=== PATIENT | male | born 1940 | race Caucasian/White ===

== ENCOUNTER 2016-04-08 19:03 | Inpatient (IN) | payer MEDICARE ==
[~2016-04-08] VITALS: Ht 182.9 cm; Wt 80.0 kg
[~2016-04-08 19:03] MED LIST: ALOG12.52 PO; CEFU1TAB42 PO; GLIP5 PO; ZANT300T PO
[2016-04-08 19:20] VITALS: BP 130/60; PULSE 98; RESP 16; TEMP 98.2; O2SAT 96
--- NOTE | 2016-04-08 19:58 | PD ---
HPI Chief Complaint: Medical Clearance Time Seen by Provider: 19:30 Travel History International Travel<30 days: No Contact w/Intl Traveler<30days: No Traveled to known affect area: No History of Present Illness HPI 75yo M DM was sent here from [facility] for admission to hospitalist for IV antibiotics s/p scrotal abscess drainage, suprapubic tube placement and scrotal packing by Dr. Davey Staples today. Pt denies any pain currently. Denies any chest pain, sob, n/v, abdominal pain, weakness or numbness. PFSH Past Medical History Hx Anticoagulant Therapy: No Arthritis: Yes Autoimmune Disease: No Cancer: No Cardiovascular Problems: Yes High Cholesterol: Yes Chemotherapy: No Cerebrovascular Accident: No Diabetes: Yes Patient Takes Glucophage: No Diminished Hearing: No Endocrine: Yes Gastrointestinal Disorders: Yes GERD: Yes Genitourinary: No Immune Disorder: No Musculoskeletal: Yes Neurologic: No Psychiatric: No Reproductive: No Respiratory: No Radiation Therapy: No Tetanus Vaccination: < 5 Years Influenza Vaccination: No Past Surgical History Cholecystectomy: Yes Other Surgery: Yes (veins in legs) Social History Alcohol Use: No Tobacco Use: No Substance Use: No Allergies-Medications (Allergen,Severity, Reaction): Coded Allergies: No Known Allergies (Unverified , 11/13/14) Reported Meds & Prescriptions Reported Meds & Active Scripts Active Reported Flomax (Tamsulosin HCl) 0.4 Mg Cap 0.4 Mg PO HS Zantac (Ranitidine HCl) 300 Mg Tab 300 Mg PO DAILY Protonix (Pantoprazole Sodium) 40 Mg Tab 40 Mg PO DAILY Lasix (Furosemide) 40 Mg Tab 40 Mg PO DAILY Glipizide 5 Mg Tab 5 Mg PO DAILY Take 30 minutes before a meal Review of Systems Except as stated in HPI: all other systems reviewed are Neg Physical Exam Narrative GENERAL: 75yo M not in distress. SKIN: Warm and dry. HEAD: Atraumatic. Normocephalic. EYES: Pupils equal and round. No scleral icterus. No injection or drainage. ENT: No nasal bleeding or discharge. Mucous membranes pink and moist. NECK: Trachea midline. No JVD. CARDIOVASCULAR: Regular rate and rhythm. No murmur appreciated. RESPIRATORY: No accessory muscle use. Clear to auscultation. Breath sounds equal bilaterally. GASTROINTESTINAL: Abdomen soft, non-tender, nondistended. No rebound tenderness or guarding. Suprapubic cath in place. : Aponte catheter in place. Scrotal dressing/support in place. MUSCULOSKELETAL: No obvious deformities. No clubbing. No cyanosis. No edema. NEUROLOGICAL: Awake and alert. No obvious cranial nerve deficits. Motor grossly within normal limits. Normal speech. PSYCHIATRIC: Appropriate mood and affect; insight and judgment normal. Data Data Last Documented VS Vital Signs Date Time Temp Pulse Resp B/P Pulse Ox O2 Delivery O2 Flow Rate FiO2 04/08/16 19:20 98.2 98 16 130/60 96 Room Air Orders Complete Blood Count With Diff (04/08/16 19:55) Basic Metabolic Panel (Bmp) (04/08/16 19:55) Sodium Chlor 0.45% 1000 Ml Inj (1/2 Ns 1 (04/08/16 20:00) Cefazolin Inj (Ancef Inj) (04/08/16 22:00) Sodium Chlor 0.9% 1000 Ml Inj (Ns 1000 M (04/08/16 22:00) Gentamicin 80 Mg Premix (Gentamicin 80 M (04/08/16 22:16) Admit Order (Ed Use Only) (04/08/16 22:27) Labs Laboratory Tests Test 04/08/16 20:05 White Blood Count 13.0 TH/MM3 Red Blood Count 4.08 MIL/MM3 Hemoglobin 12.8 GM/DL Hematocrit 38.6 % Mean Corpuscular Volume 94.6 FL Mean Corpuscular Hemoglobin 31.4 PG Mean Corpuscular Hemoglobin 33.2 % Concent Red Cell Distribution Width 14.7 % Platelet Count 211 TH/MM3 Mean Platelet Volume 7.8 FL Neutrophils (%) (Auto) 83.3 % Lymphocytes (%) (Auto) 9.1 % Monocytes (%) (Auto) 6.5 % Eosinophils (%) (Auto) 0.8 % Basophils (%) (Auto) 0.3 % Neutrophils # (Auto) 10.8 TH/MM3 Lymphocytes # (Auto) 1.2 TH/MM3 Monocytes # (Auto) 0.8 TH/MM3 Eosinophils # (Auto) 0.1 TH/MM3 Basophils # (Auto) 0.0 TH/MM3 CBC Comment AUTO DIFF Differential Total Cells 100 Counted Neutrophils % (Manual) 81 % Band Neutrophils % 2 % Lymphocytes % 5 % Monocytes % 10 % Eosinophils % 1 % Neutrophils # (Manual) 10.9 TH/MM3 Myelocytes 1 % Differential Comment FINAL DIFF MANUAL Platelet Estimate NORMAL Platelet Morphology Comment NORMAL Tear Drop Cells 1+ Ovalocytes 1+ Sodium Level 131 MEQ/L Potassium Level 5.2 MEQ/L Chloride Level 96 MEQ/L Carbon Dioxide Level 20.8 MEQ/L Anion Gap 14 MEQ/L Blood Urea Nitrogen 27 MG/DL Creatinine 1.53 MG/DL Estimat Glomerular Filtration 44 ML/MIN Rate Random Glucose 110 MG/DL Calcium Level 8.1 MG/DL MDM Medical Decision Making Medical Screen Exam Complete: Yes Emergency Medical Condition: Yes Interpretation(s) Laboratory Tests Test 04/08/16 20:05 White Blood Count 13.0 TH/MM3 (4.0-11.0) Red Blood Count 4.08 MIL/MM3 (4.50-5.90) Hemoglobin 12.8 GM/DL (13.0-17.0) Hematocrit 38.6 % (39.0-51.0) Mean Corpuscular Volume 94.6 FL (80.0-100.0) Mean Corpuscular Hemoglobin 31.4 PG (27.0-34.0) Mean Corpuscular Hemoglobin 33.2 % Concent (32.0-36.0) Red Cell Distribution Width 14.7 % (11.6-17.2) Platelet Count 211 TH/MM3 (150-450) Mean Platelet Volume 7.8 FL (7.0-11.0) Neutrophils (%) (Auto) 83.3 % (16.0-70.0) Lymphocytes (%) (Auto) 9.1 % (9.0-44.0) Monocytes (%) (Auto) 6.5 % (0.0-8.0) Eosinophils (%) (Auto) 0.8 % (0.0-4.0) Basophils (%) (Auto) 0.3 % (0.0-2.0) Neutrophils # (Auto) 10.8 TH/MM3 (1.8-7.7) Lymphocytes # (Auto) 1.2 TH/MM3 (1.0-4.8) Monocytes # (Auto) 0.8 TH/MM3 (0-0.9) Eosinophils # (Auto) 0.1 TH/MM3 (0-0.4) Basophils # (Auto) 0.0 TH/MM3 (0-0.2) CBC Comment AUTO DIFF Differential Total Cells 100 Counted Neutrophils % (Manual) 81 % (16-70) Band Neutrophils % 2 % (0-6) Lymphocytes % 5 % (9-44) Monocytes % 10 % (0-8) Eosinophils % 1 % (0-4) Neutrophils # (Manual) 10.9 TH/MM3 (1.8-7.7) Myelocytes 1 % (0-0) Differential Comment FINAL DIFF MANUAL Platelet Estimate NORMAL (NORMAL) Platelet Morphology Comment NORMAL (NORMAL) Tear Drop Cells 1+ (NORMAL) Ovalocytes 1+ (NORMAL) Sodium Level 131 MEQ/L (136-145) Potassium Level 5.2 MEQ/L (3.5-5.1) Chloride Level 96 MEQ/L (98-107) Carbon Dioxide Level 20.8 MEQ/L (21.0-32.0) Anion Gap 14 MEQ/L (5-15) Blood Urea Nitrogen 27 MG/DL (7-18) Creatinine 1.53 MG/DL (0.60-1.30) Estimat Glomerular Filtration 44 ML/MIN (>89) Rate Random Glucose 110 MG/DL (74-106) Calcium Level 8.1 MG/DL (8.5-10.1) Differential Diagnosis Admission for IV antibiotics for scrotal abscess Narrative Course 75yo M sent here from [facility] by Dr. Staples s/p drainage of scrotal abscess. I spoke with Dr. Baer who is covering and he states that pt was sent here for observation for IV antibiotics because he is a poorly controlled diabetic. Dr. Staples wrote an order for ancef 1m and gentamicin 80mg at 22:00. Labs reviewed, leukocytosis at 13.0. H/H low at 12.8/38.6 but better than baseline. Na low at 131, pt was initially placed on 1/[address] Staples's order, will give NS instead. K 5.2 but it is hemolyzed. BUN/ creatinine mildly elevated at 27/1.53. Previous creatinine was 1.32. Pt given ancef and gentamicin at 22:00. Discussed with Dr. Villatoro's PA and accepted to his service. Diagnosis Primary Impression: Scrotal abscess Admitting Information Admitting Physician Requests: Observation Mariah Morelos DO Apr 08, 2016 19:58
[2016-04-08] MEDS ORDERED: SODIUM CHLOR 0.45% 1000 ML INJ 1,000 ML IV SCH (20:00)
[2016-04-08] MEDS ORDERED: TAMS5CAP PO (21:01)
[2016-04-08] MEDS ORDERED: PROT40TA PO (21:01)
[2016-04-08] MEDS ORDERED: GLIP5TAB8 PO (21:01)
[2016-04-08] MEDS ORDERED: ZANT300T PO (21:01)
[2016-04-08] MEDS ORDERED: FURO1TAB60 PO (21:01)
[2016-04-08 21:12] LABS: AUTOMATED NEUTROPHIL # 10.8 TH/MM3 (1.8-7.7); BASOPHIL % 0.3 % (0.0-2.0); EOSINOPHIL # 0.1 TH/MM3 (0-0.4); EOSINOPHIL % 0.8 % (0.0-4.0); HEMATOCRIT 38.6 % (39.0-51.0); LYMPH % 9.1 % (9.0-44.0); LYMPHOCYTE # 1.2 TH/MM3 (1.0-4.8); MEAN CELL VOLUME 94.6 FL (80.0-100.0); MEAN CORPUSCULAR HEMOGLOBIN 31.4 PG (27.0-34.0); MEAN CORPUSCULAR HGB CONC 33.2 % (32.0-36.0); MONO % 6.5 % (0.0-8.0); NEUT % 83.3 % (16.0-70.0); PLATELET COUNT 211 TH/MM3 (150-450); RED BLOOD COUNT 4.08 MIL/MM3 (4.50-5.90); RED CELL DISTRIBUTION WIDTH 14.7 % (11.6-17.2)
[2016-04-08 21:14] LABS: HEMO FLAGS AUTO DIFF
[2016-04-08 21:37] LABS: BICARBONATE 20.8 MEQ/L (21.0-32.0)
[2016-04-08 21:39] LABS: POTASSIUM 5.2 MEQ/L (3.5-5.1)
[2016-04-08 21:48] LABS: BANDS 2 % (0-6); EOSINOPHILS 1 % (0-4); MYELOCYTES 1 % (0-0); NEUTROPHIL # MANUAL DIFF 10.9 TH/MM3 (1.8-7.7); POLYS (SEG NEUTROPHILS) 81 % (16-70); WBC DIFF SAMPLE 100
[2016-04-08 21:49] LABS: OVALOCYTES 1+ (NORMAL); PLATELET ESTIMATE SMEAR NORMAL (NORMAL); PLATELET MORPHOLOGY NORMAL (NORMAL); SCAN/DIFF FINAL DIFF MANUAL; TEARDROP RBCS 1+ (NORMAL)
[2016-04-08] MEDS ORDERED: GENTAMICIN INJ 80 MG in SODIUM CHLORIDE 0.9% INJ 100 ML IV ONE (22:00)
[2016-04-08] MEDS ORDERED: SODIUM CHLOR 0.9% 1000 ML INJ 1,000 ML IV SCH (22:00)
[2016-04-08] MEDS ORDERED: GENTAMICIN 80 MG PREMIX 100 ML IV ONE (22:16)
[2016-04-08] MEDS ORDERED: Gentamicin Consult Pharmacy 1 EA OTHER SCH (23:00)
[2016-04-08] MEDS ORDERED: NALOXONE HCL 0.4 MG/ML AMP IV PRN (23:00)
[2016-04-08] MEDS ORDERED: ACETAMINOPHEN 325 MG TAB PO PRN (23:00)
[2016-04-08] MEDS ORDERED: MAGNESIUM HYDROXIDE SUSP 30 ML CUP PO PRN (23:00)
[2016-04-08] MEDS ORDERED: SENNOSIDES 8.6 MG TAB PO PRN (23:00)
[2016-04-08] MEDS ORDERED: ONDANSETRON HCL 4 MG/2 ML VIAL IVP PRN (23:00)
[2016-04-08] MEDS ORDERED: ceFAZolin 2 GM PREMIX 50 ML IV SCH (23:00)
[2016-04-08] MEDS ORDERED: SODIUM CHLORIDE 0.9% FLUSH 5 ML FLUSH FLUSH PRN (23:00)
[2016-04-08] MEDS: SODIUM CHLOR 0.9% 1000 ML INJ 1,000 ML IV SCH (23:46)
[2016-04-09] VITALS (9 sets, daily range): BP systolic 113–143; BP diastolic 55–65; PULSE 87–96; RESP 16–24; TEMP 96.1–98.3; O2SAT 93–98
[2016-04-09] MEDS ORDERED: GENTAMICIN INJ 320 MG in SODIUM CHLORIDE 0.9% INJ 100 ML IV ONE (01:00)
[2016-04-09 05:55] LABS: AUTOMATED NEUTROPHIL # 6.7 TH/MM3 (1.8-7.7); BASOPHIL % 0.5 % (0.0-2.0); EOSINOPHIL # 0.1 TH/MM3 (0-0.4); EOSINOPHIL % 1.5 % (0.0-4.0); HEMATOCRIT 36.8 % (39.0-51.0); LYMPHOCYTE # 0.9 TH/MM3 (1.0-4.8); MEAN CORPUSCULAR HEMOGLOBIN 31.5 PG (27.0-34.0); MEAN CORPUSCULAR HGB CONC 33.9 % (32.0-36.0); MONO % 7.1 % (0.0-8.0); NEUT % 79.9 % (16.0-70.0); PLATELET COUNT 189 TH/MM3 (150-450); RED BLOOD COUNT 3.96 MIL/MM3 (4.50-5.90); RED CELL DISTRIBUTION WIDTH 14.7 % (11.6-17.2); WHITE BLOOD COUNT 8.4 TH/MM3 (4.0-11.0)
[2016-04-09 06:05] LABS: HEMO FLAGS AUTO DIFF
[2016-04-09 06:32] LABS: BICARBONATE 22.6 MEQ/L (21.0-32.0); POTASSIUM 4.8 MEQ/L (3.5-5.1)
[2016-04-09 06:57] LABS: BANDS 6 % (0-6); EOSINOPHILS 1 % (0-4); MYELOCYTES 2 % (0-0); NEUTROPHIL # MANUAL DIFF 7.2 TH/MM3 (1.8-7.7); POLYS (SEG NEUTROPHILS) 78 % (16-70); WBC DIFF SAMPLE 100
[2016-04-09 06:58] LABS: PLATELET ESTIMATE SMEAR NORMAL (NORMAL); PLATELET MORPHOLOGY NORMAL (NORMAL); SCAN/DIFF FINAL DIFF MANUAL
[2016-04-09] MEDS: SODIUM CHLORIDE 0.9% FLUSH 5 ML FLUSH FLUSH SCH ×2 (09:00→21:00)
[2016-04-09] MEDS: SODIUM CHLOR 0.9% 1000 ML INJ 1,000 ML IV SCH (09:36)
[2016-04-09] MEDS: HEPARIN SODIUM - SQ 10,000 UNITS/ML VIAL SQ SCH ×2 (09:51→21:10)
[2016-04-09] MEDS: CLINDAMYCIN INJ 600 MG in SODIUM CHLORIDE 0.9% INJ 100 ML IV SCH ×3 (10:10→22:27)
--- NOTE | 2016-04-09 10:33 | MH ---
cc: ADOLFOANTOLIN DATE OF ADMISSION: 04/08/2016 DATE OF 1940 CHIEF COMPLAINT Increased pain with scrotal abscess. TRAVEL LESS THAN 30 DAYS None. HISTORY OF PRESENT ILLNESS This is a pleasant, 75-year-old white male who had a TURP one week ago Wednesday. This would be approximately 1-1/2 weeks ago and had no major issues at the time of surgery. The patient went home and had an acute onset of scrotal edema, excruciating pain that he rates a 10/10. The patient could not walk and started immediately trying to get in touch with his physician. He was seen at the [facility] for IV antibiotics, also saw Dr. Davey Staples who placed a suprapubic tube and some scrotal packing. The patient is noted to have a scrotal abscess and drainage. The pain has been relieved somewhat but he still has some edema with an increased amount of bloody drainage. He has a dressing on that is intact. Currently he is alert, oriented and a fairly good historian. He does complain of some decreased appetite with some nausea. He denies any fever, no chest pain, no headache, no recent weight gain or loss. No dizziness. PAST MEDICAL HISTORY 1. Diabetes type 2. 2. GERD. 3. Hyperlipidemia. 4. Arthritis. 5. Prostate problems. PAST SURGICAL HISTORY 1. Cholecystectomy. 2. Varicose veins. 3. Recent TURP. ALLERGIES None known. REPORTED MEDICATIONS 1. Flomax. 2. Zantac. 3. Protonix. 4. Lasix. 5. Glipizide. SOCIAL HISTORY The patient is and currently lives with his in his home. He has four children who are grown. Denies any alcohol, tobacco or illicit drug use. REVIEW OF SYMPTOMS A 12 point review was done. Positives mentioned were scrotal abscess with increased pain, non-ambulatory for several days secondary to the pain, TURP one week ago. Decreased appetite and some nausea. Other systems are negative or unremarkable. PHYSICAL EXAMINATION VITAL SIGNS: Temperature 98.2, pulse 98, respirations 16, blood pressure 130/60 and 123/62. O2 sat 98 on room air. GENERAL: A 75-year-old white male looks to be younger than his stated age, resting in the bed. Alert, oriented, good historian. SKIN: Warm and dry. He does have a scrotal abscess wound which has already been mentioned with some edema and bloody drainage. HEENT: Atraumatic, normocephalic. PERRLA at 2. No scleral icterus, no nasal drainage. Mucous membranes are pink and moist. NECK: Trachea is midline. Neck is supple. No JVD. CARDIOVASCULAR: Regular rate and rhythm. He does have a grade 4/6 holosystolic murmur noted at the second intercostal space left sternal border. RESPIRATORY: Bilateral equal breath sounds anteriorly and posteriorly. Clear to auscultation. GASTROINTESTINAL: Abdomen is soft, non-tender, non-distended. Active bowel sounds. Suprapubic catheter in place. MUSCULOSKELETAL: He moves his extremities with purpose. He does have a 1+ edema bilaterally in his left lower leg. On palpation he does have some pain in his right lower leg but denies any tenderness or guarding. NEUROLOGIC: He is awake and alert x 4. Good historian. Equal hand ingredient scaler. Speech is normal. PSYCHIATRIC: Appropriate mood and affect. Judgment is normal. Insight is normal. DIAGNOSTIC DATA Initially on admission WBC count was 13, now 8.4, RBC now 3.96, hemoglobin 12.5, hematocrit 36.8, platelet count 189, neutrophil percentage absolute 79.9. Chemistry: Sodium 132, potassium now 4.8, was 5.2 on admission, chloride 99, carbon dioxide 22.6, anion gap 10, BUN 34, creatinine 1.36, GFR 51, random glucose 135, calcium 7.9. IMAGING STUDIES None so far for this visit. ASSESSMENT AND PLAN 1. Scrotal abscess. 2. Acute kidney injury with probable dehydration. 3. Hyponatremia, mild. 4. Anemia, mild. 5. Leukocytosis with possible sepsis secondary to the scrotal abscess. 6. Hypertension. Our plan is to admit initially for observation. We will monitor vital signs q. 4. He is on ADA 1800 calorie diet. Gentle hydration with fluids. Consult Urology for his expert opinion. Consult Infectious Disease. Consult Wound care. Heparin subcu for DVT prophylaxis. The patient is on Ancef, received 1 dose of gentamicin in the ER and currently has just been started on clindamycin IV. We will monitor his labs. Appreciate the expert opinion of the consulting physicians. He will need extensive wound care with dressing changes. Currently the patient if full code, full aggressive care. Dictated by: NAN Mccarthy Antolin Villatoro MD JP/SSB /9:02 AM /10:27 AM Patient was seen and examined today in ER, as above [id number] time spent with the patient Chart reviewed Labs reviewed Medications reviewed Notes reviewed Plan of care discussed with [employer] TE[employer]ER Discussed with RN Discussed with patient and family at bedside Discussed with SADIA SWARTZ
[2016-04-09] MEDS ORDERED: MORPHINE SULFATE 4 MG/ML INJ IV PUSH PRN (11:00)
[2016-04-09] MEDS ORDERED: PANTOPRAZOLE SOD 40 MG DELAYED RELEASE TAB PO SCH (11:00)
[2016-04-09] MEDS ORDERED: RANITIDINE HCL 150 MG TAB PO SCH (11:00)
[2016-04-09] MEDS: FUROSEMIDE 40 MG TAB PO SCH (11:10)
[2016-04-09] MEDS ORDERED: Vancomycin Consult Pharmacy 1 EA IV SCH (11:15)
[2016-04-09] MEDS: PIPERACIL-TAZO 3.375 GM PREMIX 50 ML IV SCH ×2 (11:57→18:37)
[2016-04-09] MEDS: glipiZIDE 5 MG TAB PO SCH (11:57)
[2016-04-09] MEDS ORDERED: GLUCAGON 1 MG/ML VIAL OTHER PRN (12:00)
[2016-04-09] MEDS ORDERED: PHARMACY ORDERED LAB XX ONE (12:00)
[2016-04-09] MEDS ORDERED: DEXTROSE 50% IN WATER 50 ML VIAL(D50) IV PUSH PRN (12:00)
--- NOTE | 2016-04-09 12:30 | PD.ID.CON ---
History of Present Illness Service ID Consult Requested By Dr Baer Reason for Consult scrotal nec fasc Primary Care Physician Christopher Tesfaye MD Diagnoses: History of Present Illness 75 diabetic male sp TURP 11 days ago, noticed worsening pain after the surgery no fever, chills He was taking profilaxis abx prior and after the surgery had his buck removed 1 wk ago, after which he noticed progressive pain and swelling of the scrotum he has also noticed drainage from the scrotum He was seen by his urologist on wed and a new buck was inserted and his pain cont to worsen He has I+D in outpt urological center and suprapubic cath placed He has normal afebrile vital signs and leukocytosis of 13K Review of Systems Other as per history of present illness the rest of 12 point Past Family Social History Allergies: Coded Allergies: No Known Allergies (Unverified , 11/13/14) Past Medical History NIDDM, states he is not compliamt with BS chks BPH Past Surgical History R knee surgery Active Ordered Medications Medications where reviewed in EMR Antibiotics Include: clindamycin ancef Family History Non-Contributory. Social History No Tobacco. No ETOH. No Illicit Drugs. , lives with his Physical Exam Vital Signs Vital Signs Date Time Temp Pulse Resp B/P Pulse Ox O2 Delivery O2 Flow Rate FiO2 04/09/16 12:00 92 24 143/65 98 Room Air 04/09/16 10:00 92 16 140/65 97 Room Air 04/09/16 08:00 92 16 124/59 98 Room Air 04/09/16 07:00 95 16 123/62 98 Room Air 04/09/16 04:00 90 17 113/55 95 Room Air 04/09/16 00:00 96 22 121/58 95 Room Air 04/08/16 19:20 98.2 98 16 130/60 96 Room Air 04/08/16 19:14 16 Physical Exam CONSTITUTIONAL/GENERAL: This is an adequately nourished patient, in no apparent distress. TUBES/LINES/DRAINS: SKIN: No jaundice, rashes, or lesions. Skin temperature appropriate. Not diaphoretic. HEAD: Atraumatic. Normocephalic. EYES: Pupils equal and round and reactive. Extraocular motions intact. No scleral icterus. No injection or drainage. Fundi not examined. ENT: Hearing grossly normal. Nose without bleeding or purulent drainage. Throat without visible erythema, exudates, masses, or lesions. NECK: Trachea midline. Supple, nontender. No palpable thyroid enlargement or nodularity. CARDIOVASCULAR: Regular rate and rhythm without murmurs, gallops, or rubs. No JVD. Peripheral pulses symmetric. RESPIRATORY/CHEST: Symmetric, unlabored respirations. Clear to auscultation. Breath sounds equal bilaterally. No wheezes, rales, or rhonchi. GASTROINTESTINAL: Abdomen soft, non-tender, nondistended. No hepato-splenomegaly , or palpable masses. No guarding. Bowel sounds present. GENITOURINARY: Buck in place SP cath in place Scrotum is erythematous and extremely tender to palpation Wet gangrenous changes are obvious Purulent drainage present MUSCULOSKELETAL: Extremities without clubbing, cyanosis, or edema. No joint tenderness or effusion noted. No calf tenderness. No mottling or clubbing. LYMPHATICS: No palpable cervical or supraclavicular adenopathy. NEUROLOGICAL: Awake and alert. Motor and sensory grossly within normal limits. Follows commands. Speech normal. Moves all extremities. PSYCHIATRIC: No obvious anxiety/depression. no apparent hallucinations or other psychotic thought process. Laboratory Laboratory Tests Test 04/08/16 04/09/16 20:05 04:54 White Blood Count 13.0 8.4 Red Blood Count 4.08 3.96 Hemoglobin 12.8 12.5 Hematocrit 38.6 36.8 Mean Corpuscular Volume 94.6 93.0 Mean Corpuscular Hemoglobin 31.4 31.5 Mean Corpuscular Hemoglobin 33.2 33.9 Concent Red Cell Distribution Width 14.7 14.7 Platelet Count 211 189 Mean Platelet Volume 7.8 7.8 Neutrophils (%) (Auto) 83.3 79.9 Lymphocytes (%) (Auto) 9.1 11.0 Monocytes (%) (Auto) 6.5 7.1 Eosinophils (%) (Auto) 0.8 1.5 Basophils (%) (Auto) 0.3 0.5 Neutrophils # (Auto) 10.8 6.7 Lymphocytes # (Auto) 1.2 0.9 Monocytes # (Auto) 0.8 0.6 Eosinophils # (Auto) 0.1 0.1 Basophils # (Auto) 0.0 0.0 CBC Comment AUTO DIFF AUTO DIFF Differential Total Cells 100 100 Counted Neutrophils % (Manual) 81 78 Band Neutrophils % 2 6 Lymphocytes % 5 9 Monocytes % 10 4 Eosinophils % 1 1 Neutrophils # (Manual) 10.9 7.2 Myelocytes 1 2 Differential Comment FINAL DIFF FINAL DIFF MANUAL MANUAL Platelet Estimate NORMAL NORMAL Platelet Morphology Comment NORMAL NORMAL Tear Drop Cells 1+ Ovalocytes 1+ Sodium Level 131 132 Potassium Level 5.2 4.8 Chloride Level 96 99 Carbon Dioxide Level 20.8 22.6 Anion Gap 14 10 Blood Urea Nitrogen 27 34 Creatinine 1.53 1.36 Estimat Glomerular Filtration 44 51 Rate Random Glucose 110 135 Calcium Level 8.1 7.9 Red Cell Morphology Comment NORMAL Result Diagram: 04/09/16 0454 04/09/16 0454 Assessment and Plan Assessment and Plan Demond's gangrene sp TURP ARF start zosyn, vancomycin, clindamycin - dc ancef - dc gent - pt needs urgent debridement of necrotic tissue Discussed Condition With pt, at b/s Sulma Stearns MD Apr 09, 2016 12:30
[2016-04-09] MEDS: VANCOMYCIN INJ 1,750 MG in SODIUM CHLORID 0.9% 500 ML INJ 500 ML IV SCH (15:06)
[2016-04-09] MEDS: INSULIN NovoLIN REGULAR SUPPLEMENTAL SCALE SQ SCH ×2 (16:00→21:11)
--- NOTE | 2016-04-09 19:19 | HHI.PR ---
Subjective Remarks Patient seen and examined with my partner Dr Baer. Scrotal wound is beginning to demarcate nicely and will require further debridement but it is not urgent at this point. The scrotal tissue shows no evidence of progression of abscess formation, no progressive erythema and the scrotal cavity is well drained. It is to be noted that the ventral surface of his mid urethra has eroded and so the urethral catheter is visible within the scrotal cavity and should not be removed. Davey Staples Objective Vital Signs Vital Signs Date Time Temp Pulse Resp B/P Pulse Ox O2 Delivery O2 Flow Rate FiO2 04/09/16 16:00 96.1 88 20 129/58 96 04/09/16 12:00 92 24 143/65 98 Room Air 04/09/16 10:00 92 16 140/65 97 Room Air 04/09/16 08:00 92 16 124/59 98 Room Air 04/09/16 07:00 95 16 123/62 98 Room Air 04/09/16 04:00 90 17 113/55 95 Room Air 04/09/16 00:00 96 22 121/58 95 Room Air 04/08/16 19:20 98.2 98 16 130/60 96 Room Air 04/08/16 19:14 16 Result Diagram: 04/09/16 0454 04/09/16 0454 Dallin Baer MD Apr 09, 2016 19:19
[2016-04-09] MEDS: TAMSULOSIN HCL 0.4 MG CAP PO SCH (21:10)
[2016-04-10] MEDS: ZOLPIDEM TARTRATE 5 MG TAB PO PRN (00:01)
[2016-04-10 03:44] VITALS: BP 126/66; PULSE 86; RESP 20; TEMP 96.8; O2SAT 93
[2016-04-10] MEDS: SODIUM CHLOR 0.9% 1000 ML INJ 1,000 ML IV SCH ×3 (04:34→14:57)
[2016-04-10] MEDS: CLINDAMYCIN INJ 600 MG in SODIUM CHLORIDE 0.9% INJ 100 ML IV SCH ×4 (04:34→22:36)
[2016-04-10] MEDS: PIPERACIL-TAZO 3.375 GM PREMIX 50 ML IV SCH ×4 (06:20→18:14)
[2016-04-10] MEDS: INSULIN NovoLIN REGULAR SUPPLEMENTAL SCALE SQ SCH ×4 (06:24→22:38)
[2016-04-10 07:38] VITALS: BP 142/66; PULSE 87; RESP 17; TEMP 97.2; O2SAT 94
[2016-04-10 08:35] LABS: POTASSIUM 3.9 MEQ/L (3.5-5.1)
[2016-04-10] MEDS ORDERED: FAMOTIDINE 20 MG TAB PO SCH (09:07)
[2016-04-10] MEDS: glipiZIDE 5 MG TAB PO SCH (09:38)
[2016-04-10] MEDS: FUROSEMIDE 40 MG TAB PO SCH (09:38)
[2016-04-10] MEDS: FAMOTIDINE 20 MG TAB PO SCH ×2 (09:38→22:37)
[2016-04-10] MEDS: HEPARIN SODIUM - SQ 10,000 UNITS/ML VIAL SQ SCH ×2 (09:38→22:37)
[2016-04-10] MEDS: SODIUM CHLORIDE 0.9% FLUSH 5 ML FLUSH FLUSH SCH ×2 (09:40→22:36)
--- NOTE | 2016-04-10 10:10 | HHI.PR ---
Subjective Subjective Remarks No chest pain Pain easing and scrotal area No shortness of breath No headache Appetite good (Liudmila Mary) Review of Systems Constitutional Constitutional: Weakness (generalized) (Liudmila Mary) Genitourinary Remarks Aponte, to be left in place (Liudmila Mary) Integumentary Skin: Wounds Skin Remarks Scrotal wound and abscess, bloody serous discharge, moderate amount (Liudmila Mary) Psychiatric Psychiatric: Normal Mood, Anxiety (mild) (Liudmila Mary) Vitals/Results Intake & Output 04/09/16 04/09/16 04/10/16 15:00 23:00 07:00 Output Total 1050 ml Balance -1050 ml Output Urine Total 1050 ml Vital Signs Vital Signs Date Time Temp Pulse Resp B/P Pulse Ox O2 Delivery O2 Flow Rate FiO2 04/10/16 07:38 97.2 87 17 142/66 94 04/10/16 03:44 96.8 86 20 126/66 93 04/09/16 23:49 98.2 87 19 128/60 95 04/09/16 20:15 98.3 92 20 138/63 93 04/09/16 16:00 96.1 88 20 129/58 96 04/09/16 12:00 92 24 143/65 98 Room Air (Liudmila Mary) CBC/BMP: 04/09/16 0454 04/10/16 0652 Lab Results Laboratory Tests Test 04/09/16 04/10/16 13:35 06:52 Random Gentamicin Level 4.3 MCG/ML Sodium Level 135 MEQ/L Potassium Level 3.9 MEQ/L Chloride Level 101 MEQ/L Carbon Dioxide Level 25.0 MEQ/L Anion Gap 9 MEQ/L Blood Urea Nitrogen 38 MG/DL Creatinine 1.31 MG/DL Estimat Glomerular Filtration 53 ML/MIN Rate Random Glucose 119 MG/DL Calcium Level 7.7 MG/DL Microbiology Microbiology 04/09/16 Gram Stain - Final, Resulted 04/09/16 Wound Culture, Resulted Pending Current Medications Active Medications Dextrose (D50w (Vial) Inj) 25 ml UNSCH PRN IV PUSH; Start 04/09/16 at 12:00 Famotidine (Pepcid) 20 mg BID PO; Start 04/10/16 at 09:07; Stop 04/10/16 at 09: 10; Status DC Famotidine (Pepcid) 20 mg BID PO Last administered on 04/10/16 09:38; Admin Dose 20 MG; Start 04/10/16 at 09:09 Furosemide (Lasix) 40 mg DAILY PO Last administered on 04/10/16 09:38; Admin Dose 40 MG; Start 04/09/16 at 11:00 Glipizide (Glucotrol) 5 mg DAILYAC PO Last administered on 04/10/16 09:38; Admin Dose 5 MG; Start 04/09/16 at 11:00 Glucagon (Glucagon Inj) 1 mg UNSCH PRN OTHER; Start 04/09/16 at 12:00 Miscellaneous Information SPECIFIC LAB TO BE DRAWN:[facility] TROUGH DATE TO... ONCE ONCE XX; Start 04/12/16 at 21:45; Stop 04/12/16 at 21:46; Status Cancel Miscellaneous Information SPECIFIC LAB TO BE DRAWN:[facility] DATE... ONCE ONCE XX; Start 04/09/16 at 12:00; Stop 04/09/16 at 12:01; Status DC Miscellaneous Information SPECIFIC LAB TO BE DRAWN:VANCOMYCIN TROUGH DATE TO... ONCE ONCE XX; Start 04/12/16 at 13:45; Stop 04/12/16 at 13:46 Morphine Sulfate 4 mg 4 mg Q3H PRN IV PUSH Last administered on 04/09/16 11:11 ; Admin Dose 4 MG; Start 04/09/16 at 11:00 Pantoprazole Sodium (Protonix) 40 mg DAILY PO Last administered on 04/09/16 11: 20; Admin Dose 40 MG; Start 04/09/16 at 11:00; Stop 04/09/16 at 12:14; Status DC Pharmacy Profile Note 0 ml @ 0 mls/hr UNSCH IV; Start 04/09/16 at 11:15 Piperacillin Sod/ Tazobactam Sod 50 ml @ 100 mls/hr Q6H IV Last administered on 04/10/16 06:20; Admin Dose 100 MLS/HR; Start 04/09/16 at 12:00 Ranitidine HCl (Zantac) 300 mg DAILY PO; Start 04/09/16 at 11:00; Stop 04/10/16 at 09:07; Status DC Tamsulosin HCl (Flomax) 0.4 mg HS PO Last administered on 04/09/16 21:10; Admin Dose 0.4 MG; Start 04/09/16 at 21:00 Vancomycin HCl/ Sodium Chloride (Vancomycin Inj/ NS 500 ml Inj) 517.5 ml @ 250 mls/hr Q24H IV Last administered on 04/09/16 15:06; Admin Dose 250 MLS/HR; Start 04/09/16 at 14:00 Zolpidem Tartrate (Ambien) 5 mg HS PRN PO Last administered on 04/10/16 00:01 ; Admin Dose 5 MG; Start 04/09/16 at 23:45 (Lidumila Mary) Physical Exam General General Appearance: Well Developed, Well Nourished, No Acute Distress, Comfortable (at present) (Liudmila MaryP) Eyes Eye Exam: Pupils Equal, Pupils Reactive, Sclera White (Liudmila MaryP) Ears & Nose Ears & Nose Exam: Nasal Mucosa [place], Septum Midline (Liudmila MaryP) Throat Throat Exam: Oral Mucosa [place] & Moist (Liudmila Mayr) Neck Neck Exam: Neck Supple, Trachea Midline (Liudmila MrayP) Pulmonary Resp Exam: Clear Bilaterally, Breath Sounds Equal, No Distress (Liudmila MaryP) Cardiology CV Exam: Regular (Liudmila Mary) Gastrointestinal/Abdomen GI Exam: Soft, Non-Tender, Bowel Sounds Present (Liudmila MaryP) Genitourinary Remarks Aponte catheter, orange clear urine, catheter to be left in place per Dr. mar ( Liudmila Mary) Musculoskeletal MS Exam: Joints Intact, Normal Tone (Liudmila MaryP) Integumentary Skin Exam: Clear, Warm, Normal Turgor Skin Remarks Scrotal wound with dressing, moderate amount of dark bloody drainage, with serous drainage. (Liudmila Mary) Extremeties Extremities Exam: Moderate Edema (2+ bilateral lower leg edema), Pitting Edema (Liudmila Mary M. NET COORDINATOR) Neurologic Neuro Exam: Alert, Awake, Oriented, Speech Clear, Moving All Extremities ( Liudmila Mary) Psychiatric Psych Exam: Appropriate Responses (Liudmila MaryAdarsh [place]) Assessment/Plan Assessment/Plan ASSESSMENT AND PLAN 1. Scrotal abscess. 2. Acute kidney injury with probable dehydration. 3. Hyponatremia, mild. 4. Anemia, mild. 5. Leukocytosis with possible sepsis secondary to the scrotal abscess. 6. Hypertension. admit initially for observation. vital signs q.4. ADA 1800 calorie diet. Gentle hydration with fluids. Consult Urology for his expert opinion. [place] catheter is to stay intact. According to his note ,scrotal wound is beginning to demarcate nicely and will require further debridement but it is not urgent at this point. The scrotal tissue shows no evidence of progression of abscess formation. Scrotal cavity is well drained. It is to be noted that the ventral surface of his mid urethra has eroded and so the urethral catheter is visible within the scrotal cavity and should not be removed. Consult Infectious Disease. Antibiotics include Zosyn and vancomycin and clindamycin IV. Demond's gangrene Leukocytosis now resolved with normal white count at 8.4 continue to monitor Consult Wound care. Heparin subcu for DVT prophylaxis. We will monitor his labs, vital signs, pain management, nutrition Labs in the a.m. Appreciate the expert opinion of the consulting physicians. He will need extensive wound care with dressing changes. Currently the patient if full code, full aggressive care. Discussed Condition with: Patient (Liudmila MaryAdarsh [place]) Assessment/Plan Pt seen and examined as above face to face time spent with pt labs and meds reviewed notes reviwed plan of care dw assistant chief of police dw rn dw pt (Mauricio Villatoro MD) TyraLiudmila [place] Apr 10, 2016 10:10 Mauricio Villatoro MD Apr 10, 2016 18:38
[2016-04-10 11:52] VITALS: BP 137/63; PULSE 89; RESP 20; TEMP 96.4; O2SAT 97
[2016-04-10] MEDS: VANCOMYCIN INJ 1,750 MG in SODIUM CHLORID 0.9% 500 ML INJ 500 ML IV SCH (14:34)
[2016-04-10] MEDS: ACETAMINOPHEN/HYDROcodone 325 MG/5 MG TAB PO PRN (17:06)
[2016-04-10 19:35] VITALS: BP 135/60; PULSE 85; RESP 19; TEMP 98.1; O2SAT 95
[2016-04-10] MEDS: TAMSULOSIN HCL 0.4 MG CAP PO SCH (22:37)
[2016-04-11] MEDS: PIPERACIL-TAZO 3.375 GM PREMIX 50 ML IV SCH ×3 (00:37→12:18)
[2016-04-11 00:42] VITALS: BP 133/63; PULSE 87; RESP 19; TEMP 98.2; O2SAT 95
[2016-04-11] MEDS: CLINDAMYCIN INJ 600 MG in SODIUM CHLORIDE 0.9% INJ 100 ML IV SCH ×2 (03:24→10:10)
[2016-04-11 03:51] VITALS: BP 131/60; PULSE 87; RESP 19; TEMP 98.4; O2SAT 96
[2016-04-11] MEDS: INSULIN NovoLIN REGULAR SUPPLEMENTAL SCALE SQ SCH ×4 (05:31→21:00)
[2016-04-11] MEDS: LIDOCAINE HCL 1% 50 ML VIAL ONE ×2 (07:17→07:20)
--- NOTE | 2016-04-11 07:34 | HHI.PR ---
Subjective Subjective Remarks S/P debridement of scrotal skin 04/11 tolerated well pain well controlled no cp no sob ate okay, no n/v no fever Review of Systems Constitutional Constitutional: Weakness (generalized) Constitutional Remarks 12 point ROS completed, negative except as noted above Integumentary Skin: Wounds Psychiatric Psychiatric: Normal Mood, Anxiety (mild) Vitals/Results Intake & Output 04/10/16 04/10/16 04/11/16 15:00 23:00 07:00 Output Total 650 ml 1200 ml 900 ml Balance -650 ml -1200 ml -900 ml Output Urine Total 650 ml 1200 ml 900 ml Vital Signs Vital Signs Date Time Temp Pulse Resp B/P Pulse Ox O2 Delivery O2 Flow Rate FiO2 04/11/16 03:51 98.4 87 19 131/60 96 04/11/16 00:42 98.2 87 19 133/63 95 04/10/16 19:35 98.1 85 19 135/60 95 04/10/16 11:52 96.4 89 20 137/63 97 04/10/16 07:38 97.2 87 17 142/66 94 CBC/BMP: 04/09/16 0454 04/10/16 0652 Physical Exam General General Appearance: Well Developed, Well Nourished, No Acute Distress, Comfortable Eyes Eye Exam: Pupils Equal, Pupils Reactive, Extraocular Movement Intact Ears & Nose Ears & Nose Exam: Nasal Mucosa [place] Throat Throat Exam: Oral Mucosa [place] & Moist Neck Neck Exam: Neck Supple, Trachea Midline Pulmonary Resp Exam: Clear Bilaterally, Breath Sounds Equal, No Distress Cardiology CV Exam: Regular Gastrointestinal/Abdomen GI Exam: Soft, Bowel Sounds Present, Distended Genitourinary Exam: Clear Urine Remarks BUCK -suprapubic and urethral Musculoskeletal MS Exam: Joints Intact, Normal Tone Integumentary Skin Exam: Clear, Warm, Normal Turgor Extremeties Extremities Exam: Pedal Pulses Palpable, Moderate Edema (2+ bilateral lower leg edema), Pitting Edema Neurologic Neuro Exam: Alert, Awake, Oriented, Speech Clear, Moving All Extremities, No Focal Deficits Psychiatric Psych Exam: Appropriate Responses VTE Prophylaxis VTE Prophylaxis Device: TEDs VTE Prophylaxis Meds: Heparin PUD Prophylasis PUD Remarks PEPCID Assessment/Plan Problem List: (1) Scrotal abscess (2) Lactic acidemia (3) ARF (acute renal failure) (4) Hypertension (5) BPH (benign prostatic hyperplasia) (6) Status post recent transurethral resection of prostate (7) Diabetes 1.5, managed as type 2 Assessment/Plan Scrotal abscess S/P debridement of scrotal skin 04/11 continue with suprapubic and buck catheter continue abx, ESBL + Appreciate ID and urology input Continue with accuchecks AC/HS Diabetic pain Pain management PRN Renal function improving cautious hydration Pedal edema, chronic continue TEDS Lasix PO Heparin SQ for DVT prophylaxis. Pepcid for GI prophylaxis Replace K Will be going back to OR on Wednesday PT for eval and tx D/W RN D/W Dr. Villatoro D/W pt This patient was seen by myself and Dr. Villatoro, this note is written on his behalf. Problem Qualifiers (1) ARF (acute renal failure): Qualified Code: N17.9 - Acute renal failure, unspecified acute renal failure type (2) Hypertension: Qualified Code: I10 - Essential hypertension (3) BPH (benign prostatic hyperplasia): Qualified Code: N40.0 - Benign prostatic hyperplasia, presence of lower urinary tract symptoms unspecified, unspecified morphology Miya Grullon Apr 11, 2016 07:34
[2016-04-11 07:44] LABS: HEMATOCRIT 33.7 % (39.0-51.0); MEAN CORPUSCULAR HEMOGLOBIN 31.6 PG (27.0-34.0); PLATELET COUNT 164 TH/MM3 (150-450); RED BLOOD COUNT 3.63 MIL/MM3 (4.50-5.90); RED CELL DISTRIBUTION WIDTH 14.4 % (11.6-17.2); REVIEW FLAG FINAL; WHITE BLOOD COUNT 4.9 TH/MM3 (4.0-11.0)
[2016-04-11 07:56] LABS: BICARBONATE 26.8 MEQ/L (21.0-32.0); POTASSIUM 3.5 MEQ/L (3.5-5.1)
--- NOTE | 2016-04-11 08:46 | PD.OP ---
Operative Report Date of Surgery: Apr 11, 2016 Preoperative Diagnosis: (1) Scrotal abscess Postoperative Diagnosis: Procedure: Debridement of Scrotal Skin Surgeon: Dallin Baer [employer] Supervisor(s): N/A Operation and Findings: See dictated report. Will likely need another debridement on Thursday 04/13. Dallin Baer MD Apr 11, 2016 08:46
[2016-04-11] MEDS ORDERED: MIDAZOLAM HCL 2 MG/2 ML VIAL ONE (08:54)
[2016-04-11] MEDS ORDERED: fentaNYL CITRATE 250 MCG/5 ML AMP ONE (08:55)
[2016-04-11] MEDS ORDERED: ACETAMINOPHEN 1000 MG/100 ML VIAL IV ONE (08:55)
[2016-04-11] MEDS: SODIUM CHLORIDE 0.9% FLUSH 5 ML FLUSH FLUSH SCH ×2 (09:00→21:20)
[2016-04-11] MEDS ORDERED: *morphine SULFATE 8 MG/ML PERIprocedure ONLY ONE (09:06)
[2016-04-11] MEDS ORDERED: *diphenhydrAMINE HCL 50 MG/ML VIAL PERIprocedural Use ONLY ONE (09:15)
[2016-04-11] MEDS ORDERED: DO NOT ADM ANY ANTICOAGULANT DRUGS XX PRN (09:45)
[2016-04-11] MEDS: FAMOTIDINE 20 MG TAB PO SCH ×2 (09:52→21:20)
[2016-04-11] MEDS: FUROSEMIDE 40 MG TAB PO SCH (09:52)
[2016-04-11] MEDS: HEPARIN SODIUM - SQ 10,000 UNITS/ML VIAL SQ SCH ×2 (09:55→21:21)
[2016-04-11] MEDS: SODIUM CHLOR 0.9% 1000 ML INJ 1,000 ML IV SCH (10:21)
[2016-04-11] MEDS ORDERED: ONDANSETRON HCL 4 MG/2 ML VIAL IV PUSH ONE (12:00)
[2016-04-11] MEDS ORDERED: PROPOFOL 200 MG/20 ML AMP IV ONE (12:00)
[2016-04-11] MEDS ORDERED: PHENYLEPH/NS 1000 MCG/10 ML SYR IV ONE (12:00)
[2016-04-11] MEDS: glipiZIDE 5 MG TAB PO SCH (12:20)
[2016-04-11 13:00] VITALS: BP 145/66; PULSE 83; RESP 18; TEMP 98.1; O2SAT 99
[2016-04-11] MEDS: VANCOMYCIN INJ 1,750 MG in SODIUM CHLORID 0.9% 500 ML INJ 500 ML IV SCH (13:01)
--- NOTE | 2016-04-11 13:17 | EKG ---
Date Performed: 04/11/2016 Time Performed: 00:36:51 PTAGE: 75 years EKG: Sinus rhythm WITH OCCASIONAL SUPRAVENTRICULAR PREMATURE COMPLEXES LOW QRS VOLTAGE IN PRECORDIAL LEADS MINIMAL ST DEPRESSION BORDERLINE ECG PREVIOUS TRACING : 11/13/2014 14.02 Compared to previous tracing, PAC is seen. Nonspecific zuleta ges are slightly more prominent. DOCTOR: Hernesto Matta Interpretating Date/Time 04/11/2016 13:15:44
[2016-04-11] MEDS ORDERED: ASP: Documented ESBL, MDR A baumannii or P. aeruginosa XX PRN (15:00)
[2016-04-11] MEDS ORDERED: MISCELLANEOUS PHARMACY INFORMATION XX PRN (15:00)
[2016-04-11 16:00] VITALS: BP 121/60; PULSE 81; RESP 17; TEMP 96.9; O2SAT 99
[2016-04-11] MEDS: ERTAPENEM INJ 1,000 MG in SODIUM CHLORIDE 0.9% INJ 100 ML IV SCH (16:26)
[2016-04-11] MEDS ORDERED: POTASSIUM CL 40 MEQ/30 ML LIQ UDC PO ONE (17:00)
[2016-04-11 20:00] VITALS: BP 134/63; PULSE 89; RESP 20; TEMP 96.6; O2SAT 95
[2016-04-11] MEDS: TAMSULOSIN HCL 0.4 MG CAP PO SCH (21:20)
[2016-04-11] MEDS: ZOLPIDEM TARTRATE 5 MG TAB PO PRN (21:24)
[2016-04-12 00:07] VITALS: BP 122/60; PULSE 90; RESP 19; TEMP 96.3; O2SAT 94
[2016-04-12] MEDS: INSULIN NovoLIN REGULAR SUPPLEMENTAL SCALE SQ SCH ×4 (06:08→20:58)
[2016-04-12] MEDS: glipiZIDE 5 MG TAB PO SCH (07:49)
[2016-04-12] MEDS: HEPARIN SODIUM - SQ 10,000 UNITS/ML VIAL SQ SCH ×2 (07:49→20:52)
[2016-04-12] MEDS: FUROSEMIDE 40 MG TAB PO SCH (07:49)
[2016-04-12] MEDS: FAMOTIDINE 20 MG TAB PO SCH ×2 (07:49→20:56)
[2016-04-12] MEDS: SODIUM CHLORIDE 0.9% FLUSH 5 ML FLUSH FLUSH SCH ×2 (07:50→20:57)
[2016-04-12 08:00] VITALS: BP 130/66; PULSE 102; RESP 16; TEMP 95.8; O2SAT 96
[2016-04-12] MEDS: ACETAMINOPHEN/HYDROcodone 325 MG/5 MG TAB PO PRN ×2 (09:04→17:01)
[2016-04-12] MEDS: SODIUM CHLOR 0.9% 1000 ML INJ 1,000 ML IV SCH (10:21)
--- NOTE | 2016-04-12 11:27 | HHI.PR ---
Subjective Interval History S/P debridement of scrotal skin 04/11 tolerated well pain well controlled no cp no sob ate okay, no n/v no fever Had debridement done yesterday Review of Systems 12 point ROS completed, negative except as noted above Review of Systems Constitutional Constitutional: Weakness (generalized) Integumentary Skin: Wounds Psychiatric Psychiatric: Normal Mood, Anxiety (mild) Vitals/Results Intake & Output 04/11/16 04/11/16 04/12/16 15:00 23:00 07:00 Intake Total 1891 ml 837 ml 120 ml Output Total 2105 ml 300 ml 200 ml Balance -214 ml 537 ml -80 ml Intake Oral 940 ml 240 ml 120 ml IV Total 351 ml 597 ml Other 600 ml Output Urine Total 2100 ml 300 ml 200 ml Estimated Blood Loss 5 ml # Bowel Movements 0 0 0 Vital Signs Vital Signs Date Time Temp Pulse Resp B/P Pulse Ox O2 Delivery O2 Flow Rate FiO2 04/12/16 10:04 16 04/12/16 08:00 95.8 102 16 130/66 96 04/12/16 00:07 96.3 90 19 122/60 94 04/11/16 20:00 96.6 89 20 134/63 95 04/11/16 16:00 96.9 81 17 121/60 99 04/11/16 13:00 98.1 83 18 145/66 99 04/11/16 12:00 76 12 123/60 97 Room Air CBC/BMP: 04/11/16 0633 04/11/16 0633 Physical Exam General General Appearance: Well Developed, Well Nourished, No Acute Distress, Comfortable Eyes Eye Exam: Pupils Equal, Pupils Reactive, Extraocular Movement Intact Ears & Nose Ears & Nose Exam: Nasal Mucosa [place] Throat Throat Exam: Oral Mucosa [place] & Moist Neck Neck Exam: Neck Supple, Trachea Midline Pulmonary Resp Exam: Clear Bilaterally, Breath Sounds Equal, No Distress Cardiology CV Exam: Regular CV Remarks S1 and S2 audible unable to hear any S3 gallop Gastrointestinal/Abdomen GI Exam: Soft, Non-Tender, Bowel Sounds Present, Non-Distended GI Remarks Suprapubic catheter Musculoskeletal MS Exam: Joints Intact, Normal Tone Integumentary Skin Exam: Clear, Warm, Normal Turgor Extremeties Extremities Exam: Pedal Pulses Palpable, Moderate Edema (2+ bilateral lower leg edema), Pitting Edema Neurologic Neuro Exam: Alert, Awake, Oriented, Speech Clear, Moving All Extremities, No Focal Deficits Psychiatric Psych Exam: Appropriate Responses VTE Prophylaxis VTE Prophylaxis Device: TEDs VTE Prophylaxis Meds: Heparin Assessment/Plan Problem List: (1) Scrotal abscess (2) Lactic acidemia (3) ARF (acute renal failure) (4) Hypertension (5) BPH (benign prostatic hyperplasia) (6) Status post recent transurethral resection of prostate (7) Diabetes 1.5, managed as type 2 Assessment/Plan Scrotal abscess S/P debridement of scrotal skin 04/11 continue with suprapubic and buck catheter continue abx, as per ID ESBL + Escherichia coli Appreciate ID and urology input Continue with accuchecks AC/HS Diabetic pain Pain management PRN Renal function better cautious hydration Pedal edema, chronic continue TEDS Lasix PO Heparin SQ for DVT prophylaxis. Pepcid for GI prophylaxis Labs reviewed potassium better Stable H&H Will be going back to OR on Wednesday PT for eval and tx D/W RN D/W pt and his spouse at bedside Problem Qualifiers (1) ARF (acute renal failure): Qualified Code: N17.9 - Acute renal failure, unspecified acute renal failure type (2) Hypertension: Qualified Code: I10 - Essential hypertension (3) BPH (benign prostatic hyperplasia): Qualified Code: N40.0 - Benign prostatic hyperplasia, presence of lower urinary tract symptoms unspecified, unspecified morphology Mauricio Villatoro MD Apr 12, 2016 11:27
[2016-04-12 12:00] VITALS: BP 133/68; PULSE 96; RESP 17; TEMP 95.5; O2SAT 96
[2016-04-12 13:24] VITALS: BP 140/65; PULSE 103; RESP 20; TEMP 96.5; O2SAT 97
--- NOTE | 2016-04-12 13:39 | HHI.PR ---
Subjective Remarks fell hit his head. Does not remember fall. Slightly confused. Denies fevers. only had Percocet at 9 am this morning. Denies pain. Objective Vital Signs Vital Signs Date Time Temp Pulse Resp B/P Pulse Ox O2 Delivery O2 Flow Rate FiO2 04/12/16 12:00 95.5 96 17 133/68 96 04/12/16 10:04 16 04/12/16 08:00 95.8 102 16 130/66 96 04/12/16 00:07 96.3 90 19 122/60 94 04/11/16 20:00 96.6 89 20 134/63 95 04/11/16 16:00 96.9 81 17 121/60 99 I/O 04/11/16 04/11/16 04/11/16 04/12/16 04/12/16 04/12/16 07:00 15:00 23:00 07:00 15:00 23:00 Intake Total 1891 ml 837 ml 120 ml Output Total 900 ml 2105 ml 300 ml 200 ml Balance -900 ml -214 ml 537 ml -80 ml Intake Oral 940 ml 240 ml 120 ml IV Total 351 ml 597 ml Other 600 ml Output Urine Total 900 ml 2100 ml 300 ml 200 ml Estimated Blood Loss 5 ml # Bowel Movements 0 0 0 Result Diagram: 04/11/1663204/11/16632 Objective Remarks NAD. Awake but confused to place, time. abd soft scrotum wound edges appear clean, no eschar/necrosis seen. Procedures scrotal debridement 04/11 Assessment and Plan Problem List: (1) Scrotal abscess ICD Code: N49.2 Status: Acute Assessment and Plan POD #1 s/p Debridement of scrotal skin -CT Brain w/o Contrast -Blood cultures x 2 -CXR -antibiotics per ID. -limit pain medication -will make NPO after midnight for possible debridement tomorrow. Dr. Staples will be back tomorrow. Dallin Baer MD Apr 12, 2016 13:39
[2016-04-12] MEDS ORDERED: PHARMACY ORDERED LAB XX ONE ×2 (13:45→21:45)
--- NOTE | 2016-04-12 14:42 | RADRPT ---
EXAM DATE/TIME: 04/12/2016 14:19 [facility] COMPARISON: CHEST SINGLE AP, November 13, 2014, 14:20. INDICATIONS : Short of Breath MEDICAL HISTORY : Diabetes mellitus type II. SURGICAL HISTORY : None. ENCOUNTER: Initial ACUITY: 1 day PAIN SCORE: 0/10 LOCATION: Bilateral chest FINDINGS: PA and lateral views of the chest demonstrate the lungs to be symmetrically aerated without evidence of mass, infiltrate or effusion. The cardiomediastinal contours are unremarkable. Osseous structure s are intact. CONCLUSION: No acute disease. No significant change has occurred. Bishnu Malhotra MD on April 12, 2016 at 14:40 Board Certified Radiologist. This report was verified electronically.
--- NOTE | 2016-04-12 14:58 | RADRPT ---
EXAM DATE/TIME: 04/12/2016 14:42 [facility] COMPARISON: No previous studies available for comparison. INDICATIONS : Trauma; fall, possible loss of consciousness. RADIATION DOSE: 42.28 CTDIvol (mGy) MEDICAL HISTORY : None SURGICAL HISTORY : Cholecystectomy. supra pubic catheter ENCOUNTER: Initial ACUITY: 1 day PAIN SCALE: 0/10 LOCATION: cranial TECHNIQUE: Multiple contiguous axial images were obtained of the head. Using automated exposure control and adj ustment of the mA and/or kV according to patient size, radiation dose was kept as low as reasonably a chievable to obtain optimal diagnostic quality images. FINDINGS: CEREBRUM: The ventricles are normal for age. No evidence of midline shift, mass lesion, hemorrhage or acute in farction. No extra-axial fluid collections are seen. POSTERIOR FOSSA: The cerebellum and brainstem are intact. The 4th ventricle is midline. The cerebellopontine angle i s unremarkable. EXTRACRANIAL: The visualized portion of the orbits is intact. SKULL: The calvaria is intact. No evidence of skull fracture. CONCLUSION: Normal examination for a patient of this age. Enmanuel Morales MD on April 12, 2016 at 14:55 Board Certified Radiologist. This report was verified electronically.
[2016-04-12 16:00] VITALS: BP 131/57; PULSE 100; RESP 17; TEMP 95.6; O2SAT 96
[2016-04-12] MEDS: ERTAPENEM INJ 1,000 MG in SODIUM CHLORIDE 0.9% INJ 100 ML IV SCH (16:36)
[2016-04-12 20:00] VITALS: BP 131/63; PULSE 88; RESP 20; TEMP 96.8; O2SAT 98
[2016-04-12] MEDS: TAMSULOSIN HCL 0.4 MG CAP PO SCH (20:56)
[2016-04-12] MEDS: ZOLPIDEM TARTRATE 5 MG TAB PO PRN (22:58)
[2016-04-13] VITALS: BP 126/58; PULSE 85; RESP 19; TEMP 99.1; O2SAT 94
[2016-04-13 04:57] LABS: HEMATOCRIT 33.4 % (39.0-51.0); MEAN CELL VOLUME 93.2 FL (80.0-100.0); MEAN CORPUSCULAR HEMOGLOBIN 30.8 PG (27.0-34.0); MEAN CORPUSCULAR HGB CONC 33.1 % (32.0-36.0); PLATELET COUNT 162 TH/MM3 (150-450); RED BLOOD COUNT 3.59 MIL/MM3 (4.50-5.90); RED CELL DISTRIBUTION WIDTH 14.8 % (11.6-17.2); REVIEW FLAG FINAL; WHITE BLOOD COUNT 5.2 TH/MM3 (4.0-11.0)
[2016-04-13] MEDS: INSULIN NovoLIN REGULAR SUPPLEMENTAL SCALE SQ SCH ×4 (05:57→21:58)
[2016-04-13 07:28] VITALS: BP 130/63; PULSE 87; RESP 16; TEMP 96; O2SAT 96
[2016-04-13] MEDS: glipiZIDE 5 MG TAB PO SCH (08:00)
[2016-04-13] MEDS: SODIUM CHLORIDE 0.9% FLUSH 5 ML FLUSH FLUSH SCH ×2 (09:00→22:00)
[2016-04-13] MEDS: HEPARIN SODIUM - SQ 10,000 UNITS/ML VIAL SQ SCH ×2 (09:00→21:59)
[2016-04-13] MEDS: FUROSEMIDE 40 MG TAB PO SCH (09:48)
[2016-04-13] MEDS: FAMOTIDINE 20 MG TAB PO SCH ×2 (09:48→21:53)
[2016-04-13] MEDS: SODIUM CHLOR 0.9% 1000 ML INJ 1,000 ML IV SCH (09:51)
[2016-04-13 12:00] VITALS: BP 119/58; PULSE 84; RESP 17; TEMP 96.9; O2SAT 97
[2016-04-13] MEDS: ACETAMINOPHEN/HYDROcodone 325 MG/5 MG TAB PO PRN ×2 (12:13→21:57)
--- NOTE | 2016-04-13 13:48 | HHI.PR ---
Subjective Subjective Remarks going for debridement today NPO disoriented at times, today better, oriented x 2-3 sleepy wants to eat no pain no fever son at bsd Review of Systems Constitutional Constitutional: Weakness (generalized) Constitutional Remarks 12 point ROS completed, negative except as noted above-unreliable Integumentary Skin: Wounds Psychiatric Psychiatric: Normal Mood, Anxiety (mild) Vitals/Results Intake & Output 04/12/16 04/12/16 04/13/16 15:00 23:00 07:00 Intake Total 535 ml 980 ml 444 ml Output Total 1100 ml 750 ml Balance 535 ml -120 ml -306 ml Intake Oral 480 ml 120 ml IV Total 535 ml 500 ml 324 ml Output Urine Total 1100 ml 450 ml Drainage Total 300 ml # Bowel Movements 3 0 Vital Signs Vital Signs Date Time Temp Pulse Resp B/P Pulse Ox O2 Delivery O2 Flow Rate FiO2 04/13/16 12:00 96.9 84 17 119/58 97 04/13/16 07:28 96.0 87 16 130/63 96 04/13/16 00:00 99.1 85 19 126/58 94 04/12/16 20:00 96.8 88 20 131/63 98 04/12/16 18:01 17 04/12/16 16:00 95.6 100 17 131/57 96 CBC/BMP: 04/13/16 0344 04/11/16 0633 Lab Results Laboratory Tests Test 04/13/16 03:44 White Blood Count 5.2 TH/MM3 Red Blood Count 3.59 MIL/MM3 Hemoglobin 11.1 GM/DL Hematocrit 33.4 % Mean Corpuscular Volume 93.2 FL Mean Corpuscular Hemoglobin 30.8 PG Mean Corpuscular Hemoglobin 33.1 % Concent Red Cell Distribution Width 14.8 % Platelet Count 162 TH/MM3 Mean Platelet Volume 7.2 FL Microbiology Microbiology 04/12/16 Aerobic Blood Culture - Preliminary, Resulted NO GROWTH IN 1 DAY 04/12/16 Anaerobic Blood Culture - Preliminary, Resulted NO GROWTH IN 1 DAY 04/12/16 Aerobic Blood Culture - Preliminary, Resulted NO GROWTH IN 1 DAY 04/12/16 Anaerobic Blood Culture - Final, Resulted QNS - SEE AEROBE REPORT Physical Exam General General Appearance: Well Developed, Well Nourished, No Acute Distress, Comfortable, Sleeping Eyes Eye Exam: Pupils Equal, Pupils Reactive, Extraocular Movement Intact Ears & Nose Ears & Nose Exam: Nasal Mucosa [place] Throat Throat Exam: Oral Mucosa [place] & Moist Neck Neck Exam: Neck Supple, Trachea Midline Pulmonary Resp Exam: Clear Bilaterally, Breath Sounds Equal, No Distress Cardiology CV Exam: Regular Gastrointestinal/Abdomen GI Exam: Soft, Non-Tender, Bowel Sounds Present, Non-Distended Genitourinary Exam: Clear Urine Remarks BUCK -suprapubic and urethral Musculoskeletal MS Exam: Joints Intact, Normal Tone Integumentary Skin Exam: Clear, Warm, Normal Turgor Extremeties Extremities Exam: Pedal Pulses Palpable, Moderate Edema (2+ bilateral lower leg edema), Pitting Edema Neurologic Neuro Exam: Awake, Speech Clear, Moving All Extremities, No Focal Deficits Psychiatric Psych Exam: Appropriate Responses VTE Prophylaxis VTE Prophylaxis Device: TEDs VTE Prophylaxis Meds: Heparin PUD Prophylasis PUD Remarks PEPCID Assessment/Plan Problem List: (1) Scrotal abscess (2) Lactic acidemia (3) ARF (acute renal failure) (4) Hypertension (5) BPH (benign prostatic hyperplasia) (6) Status post recent transurethral resection of prostate (7) Diabetes 1.5, managed as type 2 Assessment/Plan Scrotal abscess S/P debridement of scrotal skin 04/11 continue with suprapubic and buck catheter continue abx, as per ID ESBL + Escherichia coli Appreciate ID and urology input going for another debridement today Continue with accuchecks AC/HS Diabetic pain Pain management PRN Renal function better cautious hydration Pedal edema, chronic continue TEDS Lasix PO S/P fall 04/12, was assisting out of bed, didn't recall fall. C/O scalp pain CT head done 04/12- no acute findings reorient frequently bed alarm Heparin SQ for DVT prophylaxis. Pepcid for GI prophylaxis continue with PT Labs in am DC planning soon, will need SNF, poss. 2 days D/W RN D/W pt and his son D/W Dr. Villatoro This pt was seen by myself and Dr. Villatoro, this note is written on his behalf Problem Qualifiers (1) ARF (acute renal failure): Qualified Code: N17.9 - Acute renal failure, unspecified acute renal failure type (2) Hypertension: Qualified Code: I10 - Essential hypertension (3) BPH (benign prostatic hyperplasia): Qualified Code: N40.0 - Benign prostatic hyperplasia, presence of lower urinary tract symptoms unspecified, unspecified morphology Miya Grullon [facility] Apr 13, 2016 13:48
--- NOTE | 2016-04-13 14:10 | HHI.FF ---
Face to Face Verification Diagnosis: (1) Status post recent transurethral resection of prostate (2) Scrotal abscess (3) Lactic acidemia (4) Hypertension (5) BPH (benign prostatic hyperplasia) (6) Diabetes 1.5, managed as type 2 (7) UTI (urinary tract infection) Physical Therapy Order: Evaluate and Treat Home Health Nursing Order: Medical education Signs/symptoms of disease process Wound care and dressing changes Nursing assessment with vital signs Home Health Aide Order: To Assist In: Bathing and personal care Superintendent Job Order: To Evaluate: Support services Order: To Provide: Community services I have seen patient Jamal Fonseca on 04/13/16. My clinical findings support the need for the requested home health care services because: Deconditioned w/ increased weakness Need for psychosocial assistance I certify that my clinical findings support that this patient is homebound because: Unsteady gait/balance Unsafe to leave home unassisted Need for psychosocial assistance Miya Grullon Apr 13, 2016 14:10
[2016-04-13 16:00] VITALS: BP 118/56; PULSE 87; RESP 17; TEMP 95.9; O2SAT 99
[2016-04-13] MEDS: ERTAPENEM INJ 1,000 MG in SODIUM CHLORIDE 0.9% INJ 100 ML IV SCH (17:04)
--- NOTE | 2016-04-13 18:27 | HHI.PR ---
Subjective Remarks No issues overnight. Pain well controlled. no fevers. Objective Vital Signs Vital Signs Date Time Temp Pulse Resp B/P Pulse Ox O2 Delivery O2 Flow Rate FiO2 04/13/16 16:00 95.9 87 17 118/56 99 04/13/16 12:00 96.9 84 17 119/58 97 04/13/16 07:28 96.0 87 16 130/63 96 04/13/16 00:00 99.1 85 19 126/58 94 04/12/16 20:00 96.8 88 20 131/63 98 I/O 04/12/16 04/12/16 04/12/16 04/13/16 04/13/16 04/13/16 07:00 15:00 23:00 07:00 15:00 23:00 Intake Total 120 ml 535 ml 980 ml 444 ml 252 ml Output Total 200 ml 1100 ml 750 ml 1750 ml Balance -80 ml 535 ml -120 ml -306 ml -1498 ml Intake Oral 120 ml 480 ml 120 ml 0 ml IV Total 535 ml 500 ml 324 ml 252 ml Output Urine Total 200 ml 1100 ml 450 ml 1750 ml Drainage Total 300 ml # Bowel Movements 0 3 0 2 Result Diagram: 04/13/16 0344 04/11/16 0633 Objective Remarks NAD. Awake but confused to place, time. abd soft scrotum wound edges appear clean, Granulation tissues build up on edges, no purulent drainage noted. Procedures scrotal debridement 04/11 Assessment and Plan Problem List: (1) Scrotal abscess ICD Code: N49.2 Status: Acute Assessment and Plan POD #2 s/p Debridement of scrotal skin -Plan for re-debridement tomorrow with Dr. Staples -discussed with patient in detail who understands the plan -NPO after breakfast tomorrow Adrian Crabtree MD Apr 13, 2016 18:27
[2016-04-13 20:00] VITALS: BP 120/58; PULSE 84; RESP 20; TEMP 96.6; O2SAT 98
[2016-04-13] MEDS: ZOLPIDEM TARTRATE 5 MG TAB PO PRN (21:54)
[2016-04-13] MEDS: TAMSULOSIN HCL 0.4 MG CAP PO SCH (21:54)
[2016-04-13] MEDS: MORPHINE SULFATE 4 MG/ML INJ IV PUSH PRN (22:58)
[2016-04-14] VITALS: BP 118/62; PULSE 82; RESP 20; TEMP 97.2; O2SAT 97
[2016-04-14] MEDS: ACETAMINOPHEN/HYDROcodone 325 MG/5 MG TAB PO PRN ×4 (02:01→22:50)
[2016-04-14] MEDS: INSULIN NovoLIN REGULAR SUPPLEMENTAL SCALE SQ SCH ×4 (05:03→21:00)
[2016-04-14 07:07] LABS: HEMATOCRIT 33.4 % (39.0-51.0); MEAN CELL VOLUME 94.6 FL (80.0-100.0); MEAN CORPUSCULAR HEMOGLOBIN 31.6 PG (27.0-34.0); MEAN CORPUSCULAR HGB CONC 33.4 % (32.0-36.0); PLATELET COUNT 159 TH/MM3 (150-450); RED BLOOD COUNT 3.53 MIL/MM3 (4.50-5.90); RED CELL DISTRIBUTION WIDTH 14.8 % (11.6-17.2); REVIEW FLAG FINAL; WHITE BLOOD COUNT 5.2 TH/MM3 (4.0-11.0)
[2016-04-14 07:34] LABS: BICARBONATE 29.6 MEQ/L (21.0-32.0); POTASSIUM 3.4 MEQ/L (3.5-5.1)
[2016-04-14 08:00] VITALS: BP 119/57; PULSE 83; RESP 16; TEMP 96.4; O2SAT 95
[2016-04-14] MEDS: glipiZIDE 5 MG TAB PO SCH (08:00)
[2016-04-14] MEDS: HEPARIN SODIUM - SQ 10,000 UNITS/ML VIAL SQ SCH ×2 (09:00→22:50)
[2016-04-14] MEDS: FUROSEMIDE 40 MG TAB PO SCH (09:28)
[2016-04-14] MEDS: FAMOTIDINE 20 MG TAB PO SCH ×2 (09:29→22:50)
[2016-04-14] MEDS: SODIUM CHLOR 0.9% 1000 ML INJ 1,000 ML IV SCH (09:30)
[2016-04-14] MEDS: SODIUM CHLORIDE 0.9% FLUSH 5 ML FLUSH FLUSH SCH ×2 (09:40→22:50)
--- NOTE | 2016-04-14 10:42 | MP ---
cc: TABBY BAER MD DATE OF SURGERY 04/11/2016 PREOPERATIVE DIAGNOSIS 1. Status post I&D of scrotal abscess 2. 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 Status post I&D of scrotal abscess 2. 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 SURGEON Tabby Baer MD ANESTHESIA General COMPLICATIONS None BLOOD LOSS Less than 5 mL SPECIMENS Scrotal skin for culture DISPOSITION Stable to recovery INDICATIONS The patient is a 75-year-old male with a history of BPH status post TURP in the past who was seen by Dr. Staples earlier this week with severe scrotal pain and swelling. The patient underwent an I&D of a scrotal abscess at [facility], however, due to his co-morbidities including his uncontrolled diabetes and fear for possible necrotizing fasciitis, he was then admitted to [facility] for observation and further care. Over the last 24-36 hours, the anterior and inferior scrotal skin had become dark and black consistent with a necrotizing fasciitis. Infectious disease has been consulted and started him on vancomycin, clindamycin and Zosyn. The patient is seen today for further debridement of scrotal skin. After the risks, benefits and alternatives explained to the patient, the patient wished to proceed and informed consent was obtained. DETAILS OF THE PROCEDURE The patient was properly identified, brought back to the operating room and laid supine on the operating table. Appropriate time-out was performed under the direction of anesthesiology. The patient was induced under general aesthetic. He has been receiving vancomycin, Zosyn and clindamycin therefore preoperative antibiotics were not indicated. He was then placed in the dorsolithotomy position, prepped and draped in the normal sterile surgical fashion. Both a suprapubic catheter and urethral Aponte catheter were left in place. Carefully examination was done. I was able to directly see and palpate a ventral urethral defect approximately 2 cm in length. At this time, all necrotic scrotal skin and dartos skin were removed sharply with Metzenbaum scissors. I was able to remove all visible necrotic skin all the way to the edges where the edges started to bleed. This lead to a large defect in the anterior scrotum. Both testicles remained in place. The wound was then copiously irrigated out with normal saline. Wet to dry dressings were then packed in the wound and placed, following several ABD's. There was some bleeding noted at the scrotal edges at the end of the case which indicates a good sign for healing purposes in the future. This concluded this portion of the procedure. The patient was extubated and sent to recovery in stable condition. He will be sent back to the floor for postoperative care. He will likely need another debridement in the next 24-48 hours. He should remain on IV antibiotics at this time. MD JEANNINE Umaña/SANDRA /8:49 AM /10:31 AM
--- NOTE | 2016-04-14 11:53 | HHI.PR ---
Subjective Subjective Remarks No chest pain Pain nonacute in scrotal area No shortness of breath No headache Appetite good Family states pleasant confusion Review of Systems Constitutional Constitutional: Weakness (generalized) Constitutional Remarks 10 point ROS done positives noted generalized weakness, lower extremity edema, pleasant confusion. Other systems unremarkable or negative Genitourinary Remarks Buck, to be left in place, 2 drainage bags, , urine dark orange Musculoskeletal MS: Weakness, Swelling (3+ lower extremity edema bilateral, weakness generalized) MS Remarks Both legs elevated Integumentary Skin: Wounds Skin Remarks Scrotal wound and abscess, bloody serous discharge, moderate amount Psychiatric Psychiatric: Normal Mood, Anxiety (mild) Vitals/Results Intake & Output 04/13/16 04/13/16 04/14/16 15:00 23:00 07:00 Intake Total 252 ml 360 ml 240 ml Output Total 1750 ml 550 ml 450 ml Balance -1498 ml -190 ml -210 ml Intake Oral 0 ml 360 ml 240 ml IV Total 252 ml Output Urine Total 1750 ml 550 ml 450 ml # Bowel Movements 2 0 0 Vital Signs Vital Signs Date Time Temp Pulse Resp B/P Pulse Ox O2 Delivery O2 Flow Rate FiO2 04/14/16 08:00 96.4 83 16 119/57 95 04/14/16 00:00 97.2 82 20 118/62 97 04/13/16 20:00 96.6 84 20 120/58 98 04/13/16 16:00 95.9 87 17 118/56 99 04/13/16 12:00 96.9 84 17 119/58 97 CBC/BMP: 04/14/16 0420 04/14/16 0420 Lab Results Laboratory Tests Test 04/14/16 04:20 White Blood Count 5.2 TH/MM3 Red Blood Count 3.53 MIL/MM3 Hemoglobin 11.2 GM/DL Hematocrit 33.4 % Mean Corpuscular Volume 94.6 FL Mean Corpuscular Hemoglobin 31.6 PG Mean Corpuscular Hemoglobin 33.4 % Concent Red Cell Distribution Width 14.8 % Platelet Count 159 TH/MM3 Mean Platelet Volume 7.3 FL Sodium Level 140 MEQ/L Potassium Level 3.4 MEQ/L Chloride Level 103 MEQ/L Carbon Dioxide Level 29.6 MEQ/L Anion Gap 7 MEQ/L Blood Urea Nitrogen 20 MG/DL Creatinine 1.06 MG/DL Estimat Glomerular Filtration 68 ML/MIN Rate Random Glucose 121 MG/DL Calcium Level 7.7 MG/DL Imaging Remarks Last Impressions Head CT 04/12/16 0000 Signed Impressions: Service Date/Time: Tuesday, April 12, 2016 14:42 - CONCLUSION: Normal examination for a patient of this age. Enmanuel Morales MD Chest X-Ray 04/12/16 0000 Signed Impressions: Service Date/Time: Tuesday, April 12, 2016 14:19 - CONCLUSION: No acute disease. No significant change has occurred. Bishnu Malhotra MD Current Medications Active Medications Potassium Chloride (KCl) 20 meq ONCE ONCE PO; Start 04/14/16 at 11:45; Stop at 11:46; Status UNV Physical Exam General General Appearance: Well Developed, Well Nourished, No Acute Distress, Comfortable, Sleeping Eyes Eye Exam: Pupils Equal, Pupils Reactive, Extraocular Movement Intact Ears & Nose Ears & Nose Exam: Nasal Mucosa [place] Throat Throat Exam: Oral Mucosa [place] & Moist Neck Neck Exam: Neck Supple, Trachea Midline Pulmonary Resp Exam: Clear Bilaterally, Breath Sounds Equal, No Distress Cardiology CV Exam: Regular Gastrointestinal/Abdomen GI Exam: Soft, Non-Tender, Bowel Sounds Present, Non-Distended Genitourinary Exam: Clear Urine Remarks Buck catheter, orange clear urine, catheter to be left in place per Dr. mar Musculoskeletal MS Exam: Joints Intact, Normal Tone Integumentary Skin Exam: Clear, Warm, Normal Turgor Skin Remarks Scrotal wound with dressing, moderate amount of dark bloody drainage, with serous drainage. Extremeties Extremities Exam: Pedal Pulses Palpable, Moderate Edema (2+ bilateral lower leg edema), Pitting Edema Neurologic Neuro Exam: Awake, Speech Clear, Moving All Extremities, No Focal Deficits Psychiatric Psych Exam: Appropriate Responses VTE Prophylaxis VTE Prophylaxis Device: TEDs VTE Prophylaxis Meds: Heparin Assessment/Plan Problem List: (1) Scrotal abscess (2) Lactic acidemia (3) ARF (acute renal failure) (4) Hypertension (5) BPH (benign prostatic hyperplasia) (6) Status post recent transurethral resection of prostate (7) Diabetes 1.5, managed as type 2 Assessment/Plan Scrotal abscess S/P debridement of scrotal skin 04/11 continue with suprapubic and buck catheter continue abx, as per ID ESBL + Escherichia coli Appreciate ID and urology input No debridement done yesterday, rescheduled for today between 5 and 6 Vital signs are stable patient is afebrile Continue with accuchecks AC/HS Diabetic pain, peripheral neuropathy, lower legs Pain management PRN Renal function better cautious hydration Pedal edema, chronic continue TEDS Lasix PO S/P fall 04/12, was assisting out of bed, didn't recall fall. C/O scalp pain CT head done 04/12- no acute findings reorient frequently, which seems to work. Patient still has some pleasant confusion according to family. Patient is receiving pain management as well as sleep meds. Discussed options with Dr. Villatoro bed alarm Heparin SQ for DVT prophylaxis. Pepcid for GI prophylaxis continue with PT Labs in am DC planning soon, will need SNF, poss. 2 days , discharge will depend on response to treatment D/W RN D/W pt and his son D/W Dr. Villatoro This pt was seen by myself and Dr. Villatoro, this note is written on his behalf Discussed Condition with: Patient, Spouse, Sibling Problem Qualifiers (1) ARF (acute renal failure): Qualified Code: N17.9 - Acute renal failure, unspecified acute renal failure type (2) Hypertension: Qualified Code: I10 - Essential hypertension (3) BPH (benign prostatic hyperplasia): Qualified Code: N40.0 - Benign prostatic hyperplasia, presence of lower urinary tract symptoms unspecified, unspecified morphology Liudmila Mary Apr 14, 2016 11:53
[2016-04-14 12:00] VITALS: BP 107/55; PULSE 85; RESP 17; TEMP 96.4; O2SAT 95
[2016-04-14] MEDS ORDERED: POTASSIUM CHLORIDE 20 MEQ CONTROLLED RELEASE TAB PO ONE (12:00)
[2016-04-14] MEDS ORDERED: LACTATED RINGER'S 1000 ML INJ 1,000 ML IV ONE (14:05)
[2016-04-14] MEDS ORDERED: PHENYLEPH/NS 1000 MCG/10 ML SYR IV ONE (14:05)
[2016-04-14] MEDS ORDERED: PROPOFOL 200 MG/20 ML AMP IV ONE (14:05)
[2016-04-14] MEDS ORDERED: ONDANSETRON HCL 4 MG/2 ML VIAL IV PUSH ONE (14:05)
--- NOTE | 2016-04-14 15:23 | RADRPT ---
EXAM DATE/TIME: 04/14/2016 14:13 [place] COMPARISON: No previous studies available for comparison. INDICATIONS : Bilateral lower extremity edema. MEDICAL HISTORY : Gastroesophageal reflux disease. Arthritis. Diabetes. SURGICAL HISTORY : Cholecystectomy. Suprapubic catheter. Right total knee replacement. TURP. Scrotal skin debridement. ENCOUNTER: Initial ACUITY: 1 day PAIN SCORE: 2/10 LOCATION: Bilateral legs. TECHNIQUE: Venous ultrasound of the left and right leg was performed from the inguinal ligament to the proximal calf. Real-time, color Doppler and spectral tracing, compression and augmentation techniques were us ed. FINDINGS: RIGHT LEG: There is normal compressibility of the deep venous system from the inguinal region to the proximal ca lf. No echogenic clot is seen in the lumen of the common femoral, femoral, popliteal, and posterior tibial veins. There is a normal response of the venous system to proximal and distal augmentation an d respiration. LEFT LEG: There is normal compressibility of the deep venous system from the inguinal region to the proximal ca lf. No echogenic clot is seen in the lumen of the common femoral, femoral, popliteal, and posterior tibial veins. There is a normal response of the venous system to proximal and distal augmentation an d respiration. CONCLUSION: Normal examination. Ezequiel Pinon MD on April 14, 2016 at 15:22 Board Certified Radiologist. This report was verified electronically.
[2016-04-14] MEDS ORDERED: LIDOCAINE HCL 1% 50 ML VIAL ONE (15:39)
[2016-04-14 16:00] VITALS: BP 119/57; PULSE 79; RESP 16; TEMP 96.6; O2SAT 97
[2016-04-14] MEDS: ERTAPENEM INJ 1,000 MG in SODIUM CHLORIDE 0.9% INJ 100 ML IV SCH (16:35)
[2016-04-14] MEDS ORDERED: MIDAZOLAM HCL 2 MG/2 ML VIAL ONE (19:10)
[2016-04-14] MEDS ORDERED: fentaNYL CITRATE 250 MCG/5 ML AMP ONE (19:10)
--- NOTE | 2016-04-14 19:18 | HHI.IDPN ---
Subjective Subjective Remarks better sp multiple I+D grew out ESBL organism afebrile pain in scrotum improved Antibiotics ertapenem Allergies: Coded Allergies: *MDRO Multi-Drug Resistant Organism (Verified Adverse Reaction, Unknown, ) ESBL E. coli (scrotum) - 04/09/16 Objective . Vital Signs Date Time Temp Pulse Resp B/P Pulse Ox O2 Delivery O2 Flow Rate FiO2 04/14/16 16:00 96.6 79 16 119/57 97 04/14/16 12:00 96.4 85 17 107/55 95 04/14/16 08:00 96.4 83 16 119/57 95 04/14/16 00:00 97.2 82 20 118/62 97 04/13/16 20:00 96.6 84 20 120/58 98 04/13/16 04/13/16 04/14/16 15:00 23:00 07:00 Intake Total 252 ml 360 ml 240 ml Output Total 1750 ml 550 ml 450 ml Balance -1498 ml -190 ml -210 ml Intake Oral 0 ml 360 ml 240 ml IV Total 252 ml Output Urine Total 1750 ml 550 ml 450 ml # Bowel Movements 2 0 0 . Laboratory Tests Test 04/13/16 04/14/16 03:44 04:20 White Blood Count 5.2 TH/MM3 5.2 TH/MM3 Red Blood Count 3.59 MIL/MM3 3.53 MIL/MM3 Hemoglobin 11.1 GM/DL 11.2 GM/DL Hematocrit 33.4 % 33.4 % Mean Corpuscular Volume 93.2 FL 94.6 FL Mean Corpuscular Hemoglobin 30.8 PG 31.6 PG Mean Corpuscular Hemoglobin 33.1 % 33.4 % Concent Red Cell Distribution Width 14.8 % 14.8 % Platelet Count 162 TH/MM3 159 TH/MM3 Mean Platelet Volume 7.2 FL 7.3 FL Laboratory Tests Test 04/14/16 04:20 Sodium Level 140 MEQ/L Potassium Level 3.4 MEQ/L Chloride Level 103 MEQ/L Carbon Dioxide Level 29.6 MEQ/L Anion Gap 7 MEQ/L Blood Urea Nitrogen 20 MG/DL Creatinine 1.06 MG/DL Estimat Glomerular Filtration 68 ML/MIN Rate Random Glucose 121 MG/DL Calcium Level 7.7 MG/DL Microbiology Date/Time Procedure Status Source Growth 04/12/16 20:40 Aerobic Blood Culture - Preliminary Resulted Blood Peripheral NO GROWTH IN 2 DAYS 04/12/16 20:40 Anaerobic Blood Culture - Preliminary Resulted Blood Peripheral NO GROWTH IN 2 DAYS 04/12/16 20:50 Aerobic Blood Culture - Preliminary Resulted Blood Peripheral NO GROWTH IN 2 DAYS 04/12/16 20:50 Anaerobic Blood Culture - Final Resulted Blood Peripheral QNS - SEE AEROBE REPORT Imaging Last Impressions Lower Extremity Ultrasound 04/14/16 0000 Signed Impressions: Service Date/Time: Thursday, April 14, 2016 14:13 - CONCLUSION: Normal examination. Ezequiel Pinon MD Head CT 04/12/16 0000 Signed Impressions: Service Date/Time: Tuesday, April 12, 2016 14:42 - CONCLUSION: Normal examination for a patient of this age. Enmanuel Morales MD Chest X-Ray 04/12/16 0000 Signed Impressions: Service Date/Time: Tuesday, April 12, 2016 14:19 - CONCLUSION: No acute disease. No significant change has occurred. Bishnu Malhotra MD Physical Exam CONSTITUTIONAL/GENERAL: This is an adequately nourished patient, in no apparent distress. TUBES/LINES/DRAINS: SKIN: No jaundice, rashes, or lesions. Skin temperature appropriate. Not diaphoretic. EYES: Pupils equal and round and reactive. Extraocular motions intact. No scleral icterus. No injection or drainage. Fundi not examined. CARDIOVASCULAR: Regular rate and rhythm without murmurs, gallops, or rubs. No JVD. Peripheral pulses symmetric. RESPIRATORY/CHEST: Symmetric, unlabored respirations. Clear to auscultation. Breath sounds equal bilaterally. No wheezes, rales, or rhonchi. GASTROINTESTINAL: Abdomen soft, non-tender, nondistended. No hepato-splenomegaly , or palpable masses. No guarding. Bowel sounds present. GENITOURINARY: Aponte in place SP cath in place Scrotum is much less erythematous and extremely tender to palpation open scrotum wound with seropurulent MUSCULOSKELETAL: Extremities without clubbing, cyanosis, or edema. No joint tenderness or effusion noted. No calf tenderness. No mottling or clubbing. NEUROLOGICAL: Awake and alert. Motor and sensory grossly within normal limits. Follows commands. Speech normal. Moves all extremities. Assessment & Plan Remarks Scrotal gangrene sp debridement, ESBL sp TURP ARF, resolving cont Ertapenem for now - isolate S to levaquine - transition to po abx upon dc Sulma Manley MD Apr 14, 2016 19:18
[2016-04-14] MEDS ORDERED: BACITRACIN TOP OINT 15 GM TUBE ONE (20:33)
[2016-04-14] MEDS ORDERED: MORPHINE SULFATE 4 MG/ML INJ IV ONE (21:18)
--- NOTE | 2016-04-14 21:24 | MB ---
cc: CARINE DIETZ MD DATE OF CONSULTATION 04/14/16 REASON FOR CONSULTATION Continued management of scrotal abscess. CURRENT HISTORY This is a very pleasant 75-year-old gentleman who about 10 days ago underwent a standard and uneventful transurethral resection of his prostate. He has done well at the house in the postoperative setting. The Aponte catheter was removed within a couple of days. However, about 72 hours prior to admission he began to notice some urgency and some incontinence and began to notice some swelling in the scrotum. I received a telephone call on Wednesday evening of this week stating that he was having some significant discomfort. The Aponte catheter was reinserted by the home health care nurses. I saw him in the office on morning. The scrotum appeared to have developed a demarcating line on the anterior surface consistent with an abscess. Options were discussed, but I went ahead and had felt that this needed to be incised and drained. We drained about 8 ounces or purulent material. The skin edges of the incision site were dusky, but I did not feel that they were dusky enough at that point to go ahead and do any wide debridement. I felt we needed time for the tissue to declare itself. His blood sugar by this time was about 160. After completion of this and during the procedure itself, it became apparent that the ventral surface of his urethra in the scrotal cavity had been eroded through as I could palpate the Aponte catheter which we had inserted so I placed a suprapubic tube under the benefit of the existing anesthesia that we had at that time and I then loosely packed the scrotal cavity with a light bandage and then had him transferred here to [facility], where I believe a formal admission is appropriate for the next several days while this noncompliant diabetic gentleman declares himself. During this hospitalization, we will appreciate the [facility] service's help with medical management and further appreciate infectious disease helping with antibiotic management. We will continue to observe and assist in the management of the scrotal abscess as well. MD ABIGAIL Rader/ /7:05 PM /9:16 PM
[2016-04-14] MEDS ORDERED: DO NOT ADM ANY ANTICOAGULANT DRUGS XX PRN (21:30)
[2016-04-14] MEDS ORDERED: *morphine SULFATE 4 MG/ML PERIprocedure ONLY IV ONE (21:41)
[2016-04-14] MEDS: MORPHINE SULFATE 4 MG/ML INJ IV PUSH PRN (21:41)
[2016-04-14 22:00] VITALS: BP 122/72; PULSE 88; RESP 20; TEMP 97.6; O2SAT 96
[2016-04-14] MEDS: ZOLPIDEM TARTRATE 5 MG TAB PO PRN (22:50)
[2016-04-14] MEDS: TAMSULOSIN HCL 0.4 MG CAP PO SCH (22:50)
[2016-04-15] VITALS (8 sets, daily range): BP systolic 105–137; BP diastolic 55–76; PULSE 82–91; RESP 15–20; TEMP 95.7–98; O2SAT 94–98
[2016-04-15] MEDS: ACETAMINOPHEN/HYDROcodone 325 MG/5 MG TAB PO PRN ×3 (06:10→19:44)
[2016-04-15] MEDS: INSULIN NovoLIN REGULAR SUPPLEMENTAL SCALE SQ SCH ×4 (06:11→21:00)
[2016-04-15 07:16] LABS: AUTOMATED NEUTROPHIL # 4.7 TH/MM3 (1.8-7.7); BASOPHIL % 0.7 % (0.0-2.0); EOSINOPHIL % 0.5 % (0.0-4.0); HEMATOCRIT 34.9 % (39.0-51.0); HEMO FLAGS DIFF FINAL; LYMPH % 13.9 % (9.0-44.0); LYMPHOCYTE # 0.8 TH/MM3 (1.0-4.8); MEAN CELL VOLUME 93.4 FL (80.0-100.0); MEAN CORPUSCULAR HGB CONC 33.2 % (32.0-36.0); MONO % 7.6 % (0.0-8.0); NEUT % 77.3 % (16.0-70.0); PLATELET COUNT 154 TH/MM3 (150-450); RED BLOOD COUNT 3.74 MIL/MM3 (4.50-5.90); RED CELL DISTRIBUTION WIDTH 14.7 % (11.6-17.2); WHITE BLOOD COUNT 6.1 TH/MM3 (4.0-11.0)
[2016-04-15 07:37] LABS: BICARBONATE 31.5 MEQ/L (21.0-32.0)
[2016-04-15] MEDS: HEPARIN SODIUM - SQ 10,000 UNITS/ML VIAL SQ SCH ×2 (08:28→19:44)
[2016-04-15] MEDS: glipiZIDE 5 MG TAB PO SCH (08:28)
[2016-04-15] MEDS: FAMOTIDINE 20 MG TAB PO SCH ×2 (08:28→19:44)
[2016-04-15] MEDS: FUROSEMIDE 40 MG TAB PO SCH (08:28)
[2016-04-15] MEDS: SODIUM CHLORIDE 0.9% FLUSH 5 ML FLUSH FLUSH SCH ×2 (08:29→19:43)
[2016-04-15] MEDS: SODIUM CHLOR 0.9% 1000 ML INJ 1,000 ML IV SCH (08:29)
[2016-04-15] MEDS ORDERED: FUROSEMIDE 40 MG TAB PO SCH (09:00)
--- NOTE | 2016-04-15 09:20 | HHI.PR ---
Subjective Subjective Remarks No chest pain Pain nonacute in scrotal area No shortness of breath No headache Appetite good No confusion noted. (Liudmila Mary) Review of Systems Constitutional Constitutional: Weakness (generalized) Constitutional Remarks 10 point ROS done positives noted generalized weakness, lower extremity edema, no confusion today, scrotum wound care. Other systems unremarkable or negative (Liudmila Mary) Genitourinary Remarks Buck, to be left in place, 2 drainage bags, , urine dark orange (Liudmila Mary) Musculoskeletal MS: Weakness, Swelling (3+ lower extremity edema bilateral, weakness generalized) MS Remarks Both legs elevated (Liudmila Mary) Integumentary Skin: Wounds Skin Remarks Scrotal wound and abscess, bloody serous discharge, moderate amount (Liudmila Mary) Psychiatric Psychiatric: Normal Mood (Liudmila Mary) Vitals/Results Intake & Output 04/14/16 04/14/16 04/15/16 15:00 23:00 07:00 Intake Total 999 ml 1692 ml 698 ml Output Total 750 ml 1425 ml 350 ml Balance 249 ml 267 ml 348 ml Intake Oral 360 ml 25 ml 220 ml IV Total 639 ml 217 ml 478 ml Other 1450 ml Output Urine Total 750 ml 1400 ml 350 ml Estimated Blood Loss 25 ml # Bowel Movements 2 0 0 Vital Signs Vital Signs Date Time Temp Pulse Resp B/P Pulse Ox O2 Delivery O2 Flow Rate FiO2 04/15/16 04:00 98.0 82 20 120/76 97 04/15/16 00:00 97.4 84 20 118/70 95 04/14/16 22:30 97.2 79 14 131/67 95 Nasal Cannula 2 04/14/16 22:00 77 12 143/66 95 Nasal Cannula 2 04/14/16 22:00 97.6 88 20 122/72 96 04/14/16 21:30 78 14 147/68 98 Nasal Cannula 2 04/14/16 21:15 78 11 128/75 96 Nasal Cannula 2 04/14/16 21:00 79 13 148/67 97 Nasal Cannula 2 04/14/16 20:45 97.1 80 12 144/78 96 Nasal Cannula 2 96 04/14/16 16:00 96.6 79 16 119/57 97 04/14/16 12:00 96.4 85 17 107/55 95 (Liudmila Mary) CBC/BMP: 04/15/16 0610 04/15/16 0610 Lab Results Laboratory Tests Test 04/15/16 06:10 White Blood Count 6.1 TH/MM3 Red Blood Count 3.74 MIL/MM3 Hemoglobin 11.6 GM/DL Hematocrit 34.9 % Mean Corpuscular Volume 93.4 FL Mean Corpuscular Hemoglobin 31.0 PG Mean Corpuscular Hemoglobin 33.2 % Concent Red Cell Distribution Width 14.7 % Platelet Count 154 TH/MM3 Mean Platelet Volume 7.0 FL Neutrophils (%) (Auto) 77.3 % Lymphocytes (%) (Auto) 13.9 % Monocytes (%) (Auto) 7.6 % Eosinophils (%) (Auto) 0.5 % Basophils (%) (Auto) 0.7 % Neutrophils # (Auto) 4.7 TH/MM3 Lymphocytes # (Auto) 0.8 TH/MM3 Monocytes # (Auto) 0.5 TH/MM3 Eosinophils # (Auto) 0.0 TH/MM3 Basophils # (Auto) 0.0 TH/MM3 CBC Comment DIFF FINAL Differential Comment Sodium Level 139 MEQ/L Potassium Level 4.0 MEQ/L Chloride Level 101 MEQ/L Carbon Dioxide Level 31.5 MEQ/L Anion Gap 7 MEQ/L Blood Urea Nitrogen 19 MG/DL Creatinine 1.03 MG/DL Estimat Glomerular Filtration 70 ML/MIN Rate Random Glucose 110 MG/DL Calcium Level 7.8 MG/DL Imaging Remarks Last Impressions Lower Extremity Ultrasound 04/14/16 0000 Signed Impressions: Service Date/Time: Thursday, April 14, 2016 14:13 - CONCLUSION: Normal examination. Ezequiel Pinon MD Head CT 04/12/16 0000 Signed Impressions: Service Date/Time: Tuesday, April 12, 2016 14:42 - CONCLUSION: Normal examination for a patient of this age. Enmanuel Morales MD Chest X-Ray 04/12/16 0000 Signed Impressions: Service Date/Time: Tuesday, April 12, 2016 14:19 - CONCLUSION: No acute disease. No significant change has occurred. Bishnu Malhotra MD Current Medications Active Medications Bacitracin (Baciguent Oint) 15 applic [facility] ONCE .ROUTE Last administered on 20:15; Admin Dose 15 APPLIC; Start 04/14/16 at 20:33; Stop 04/14/16 at 20:34; Status DC Fentanyl Citrate (fentaNYL INJ) 250 mcg [facility] ONCE .ROUTE; Start 04/14/16 at 19:10; Stop 04/14/16 at 19:11; Status DC Furosemide (Lasix) 40 mg DAILY PO; Start 04/15/16 at 09:00; Stop 04/15/16 at 09: 00; Status DC Furosemide (Lasix) 40 mg DAILY PO Last administered on 04/15/16 08:28; Admin Dose 40 MG; Start 04/15/16 at 09:00 Lidocaine HCl (Xylocaine 1% Inj (50 ml)) 50 ml STK-MED ONCE .ROUTE; Start at 15:39; Stop 04/14/16 at 15:40; Status DC Midazolam HCl (Versed Inj) 2 mg STK-MED ONCE .ROUTE; Start 04/14/16 at 19:10; Stop 04/14/16 at 19:11; Status DC Miscellaneous Information ALL NURSING DEPARTME... UNSCH PRN XX; Start 04/14/16 at 21:30; Stop 04/15/16 at 21:29 Morphine Sulfate (*morphine INJ PERIprocedure ONLY) 4 mg STK-MED ONCE IV Last administered on 04/14/16 21:41; Admin Dose 4 MG; Start 04/14/16 at 21:41; Stop 04/15/16 at 08:50; Status DC Morphine Sulfate (Morphine Inj) 4 mg STK-MED ONCE IV Last administered on 21:18; Admin Dose 4 MG; Start 04/14/16 at 21:18; Stop 04/15/16 at 08:50; Status DC Potassium Chloride (KCl) 20 meq ONCE ONCE PO Last administered on 04/14/16 12: 32; Admin Dose 20 MEQ; Start 04/14/16 at 12:00; Stop 04/14/16 at 12:01; Status DC (Liudmila Mary) Physical Exam General General Appearance: Well Developed, Well Nourished, No Acute Distress, Comfortable, Sleeping (Tyra,Liudmila M. AIR CONTROL ELECTRONICS OPERATOR) Eyes Eye Exam: Pupils Equal, Pupils Reactive, Extraocular Movement Intact (Liudmila Mary. AIR CONTROL ELECTRONICS OPERATOR) Ears & Nose Ears & Nose Exam: Nasal Mucosa [place] (Liudmila Mary AIR CONTROL ELECTRONICS OPERATOR) Throat Throat Exam: Oral Mucosa [place] & Moist (Liudmila Mary. AIR CONTROL ELECTRONICS OPERATOR) Neck Neck Exam: Neck Supple, Trachea Midline (Liudmila Mary. AIR CONTROL ELECTRONICS OPERATOR) Pulmonary Resp Exam: Clear Bilaterally, Breath Sounds Equal, No Distress (Liudmila Mary. AIR CONTROL ELECTRONICS OPERATOR) Cardiology CV Exam: Regular ([place]. AIR CONTROL ELECTRONICS OPERATOR) Gastrointestinal/Abdomen GI Exam: Soft, Non-Tender, Bowel Sounds Present, Non-Distended (Liudmila Mary. AIR CONTROL ELECTRONICS OPERATOR) Genitourinary Exam: Clear Urine Remarks Buck catheter, orange clear urine, catheter to be left in place per Dr. mar ( Liudmila Mary. AIR CONTROL ELECTRONICS OPERATOR) Musculoskeletal MS Exam: Joints Intact, Normal Tone (Liudmila Mary. AIR CONTROL ELECTRONICS OPERATOR) Integumentary Skin Exam: Clear, Warm, Normal Turgor Skin Remarks Scrotal wound with dressing, moderate amount of dark bloody drainage, with serous drainage. (Liudmila Mary. AIR CONTROL ELECTRONICS OPERATOR) Extremeties Extremities Exam: Pedal Pulses Palpable, Moderate Edema (2+ bilateral lower leg edema), Pitting Edema Extremeties Remarks Elevated on pillows bilateral lower leg (Liudmila Mary. AIR CONTROL ELECTRONICS OPERATOR) Neurologic Neuro Exam: Awake, Speech Clear, Moving All Extremities, No Focal Deficits ( Liudmila Mary. AIR CONTROL ELECTRONICS OPERATOR) Psychiatric Psych Exam: Appropriate Responses (Liudmila MaryP) VTE Prophylaxis VTE Prophylaxis Device: TEDs VTE Prophylaxis Meds: Heparin (Liudmila Mary M. AIR CONTROL ELECTRONICS OPERATOR) Assessment/Plan Problem List: (1) Scrotal abscess (2) Lactic acidemia (3) ARF (acute renal failure) (4) Hypertension (5) BPH (benign prostatic hyperplasia) (6) Status post recent transurethral resection of prostate (7) Diabetes 1.5, managed as type 2 Assessment/Plan Scrotal abscess, wound care dressing changes. S/P debridement of scrotal skin 04/11 and 04-14 continue with suprapubic and buck catheter continue abx, as per ID ESBL + Escherichia coli Appreciate ID and urology input Vital signs are stable patient is afebrile, WBC count normal Continue with accuchecks AC/HS Diabetic pain, peripheral neuropathy, lower legs Pain management PRN Renal function better cautious hydration Pedal edema, chronic continue TEDS Lasix PO S/P fall 04/12, was assisting out of bed, didn't recall fall. C/O scalp pain CT head done 04/12- no acute findings reorient frequently, which seems to work. Morphine was discontinued yesterday due to mild altered mental status. Today patient is much more alert oriented and cooperative. Will monitor bed alarm Heparin SQ for DVT prophylaxis. Pepcid for GI prophylaxis continue with PT Labs in am DC planning soon, depending on urology input. discharge will depend on response to treatment D/W RN D/W pt D/W Dr. Villatoro This pt was seen by myself and Dr. Villatoro, this note is written on his behalf ( Liudmila Mary) Assessment/Plan Patient seen and examined as above Labs reviewed Medications reviewed Notes reviewed Plan of care discussed with AIR CONTROL ELECTRONICS OPERATOR Discussed with patient and family Discussed with RN (Mauricio Villatoro MD) Problem Qualifiers (1) ARF (acute renal failure): Qualified Code: N17.9 - Acute renal failure, unspecified acute renal failure type (2) Hypertension: Qualified Code: I10 - Essential hypertension (3) BPH (benign prostatic hyperplasia): Qualified Code: N40.0 - Benign prostatic hyperplasia, presence of lower urinary tract symptoms unspecified, unspecified morphology Liudmila Mary Apr 15, 2016 09:19 Mauricio Villatoro MD Apr 15, 2016 12:19
[2016-04-15] MEDS: ERTAPENEM INJ 1,000 MG in SODIUM CHLORIDE 0.9% INJ 100 ML IV SCH (16:24)
[2016-04-15] MEDS: TAMSULOSIN HCL 0.4 MG CAP PO SCH (19:44)
[2016-04-15] MEDS: ZOLPIDEM TARTRATE 5 MG TAB PO PRN (22:32)
[2016-04-16] VITALS: BP 122/58; PULSE 85; RESP 18; TEMP 96.4; O2SAT 94
[2016-04-16] MEDS: ACETAMINOPHEN/HYDROcodone 325 MG/5 MG TAB PO PRN ×3 (06:24→18:24)
[2016-04-16] MEDS: INSULIN NovoLIN REGULAR SUPPLEMENTAL SCALE SQ SCH ×4 (06:28→21:00)
--- NOTE | 2016-04-16 07:36 | MP ---
cc: DAVEY DIETZ MD DATE OF SURGERY 04/14/2016 PREOPERATIVE DIAGNOSIS Scrotal abscess POSTOPERATIVE DIAGNOSIS Scrotal abscess PROCEDURE PERFORMED Debridement of the scrotal abscess. SURGEON Davey Dietz MD ANESTHESIA General NOTE IN DETAIL This 75-year-old gentleman is well-known to us. He underwent a TURP about two weeks ago now. He had his Aponte catheter removed, was having an uneventful recovery and then began to develop a scrotal abscess complicated by his very poorly controlled diabetes. 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 He underwent incision and drainage of a fairly significant scrotal abscess and was then admitted to [facility]. Infectious disease was consulted as was the hospitalist. About 72 hours ago, he underwent additional incision and drainage and debridement of the abscess by my partner Dr. Dallin Baer and then today's trip was planned to return to the OR to do further debridement. So therefore, he was taken to the operating room, a time-out was taken for identification purposes. He was then given a general anesthetic, placed in the dorsal lithotomy position and appropriately cleansed and draped. The left testicle had already granulated and adhesed to the scrotal skin rather close to the skin edge so I took this down and loosened this up and was able to push the testicle further upstream thus allowing much more scrotal tissue to begin very loose reapproximation. I put five or six cigarette [place] drains throughout the scrotum after irrigating it copiously and debriding and/or necrotic tissue taking it back to a bleeding surface. So I was able to actually reapproximate the skin edges loosely. My larger concern was the surface of the urethra which had been eroded. Now in this position, I was able to utilize some 4-0 Monocryl ligature to reapproximate the edges of the urethra as the defect did not appear to be too much longer than perhaps a centimeter and half. I did not attempt to encircle the urethral edges to freshen all of them, I just simply pulled them back together because of this healing or granulating stage and leaving the Aponte catheter in place and hopefully that will act like an internal stent around which everything may seal up. He will, of course, be at extremely high risk for stricture formation and may need further debridement and further repair, but I was not certain if we would ever even be able to void through the urethra again or not. So he has tolerated all of this and is appropriately bandaged. We will wait about another 48 hours and then perhaps return to the operating room one more time for some additional debridement and then hopefully we will have him to a point where he can finish convalescing at home. MD ABIGAIL Rader/SANDRA /8:50 PM /7:27 AM
[2016-04-16 08:00] VITALS: BP 119/56; PULSE 83; RESP 17; TEMP 96.8; O2SAT 95
[2016-04-16] MEDS: HEPARIN SODIUM - SQ 10,000 UNITS/ML VIAL SQ SCH ×2 (08:39→21:52)
[2016-04-16] MEDS: FUROSEMIDE 40 MG TAB PO SCH (08:40)
[2016-04-16] MEDS: FAMOTIDINE 20 MG TAB PO SCH ×2 (08:40→21:51)
[2016-04-16] MEDS: glipiZIDE 5 MG TAB PO SCH (08:40)
[2016-04-16] MEDS: SODIUM CHLOR 0.9% 1000 ML INJ 1,000 ML IV SCH ×2 (08:41→15:23)
[2016-04-16] MEDS: SODIUM CHLORIDE 0.9% FLUSH 5 ML FLUSH FLUSH SCH ×2 (08:41→21:00)
--- NOTE | 2016-04-16 10:14 | HHI.PR ---
Subjective Subjective Remarks No chest pain No shortness of breath No headache Appetite good Alert oriented (Liudmila Mary) Review of Systems Constitutional Constitutional: Fatigue (mild), Weakness (generalized) Constitutional Remarks 10 point ROS done positives noted generalized weakness, lower extremity edema, no confusion today, scrotum wound care. Other systems unremarkable or negative (Liudmila Mary) Genitourinary Remarks Buck, to be left in place, 2 drainage bags, , urine dark orange (Liudmila Mary) Musculoskeletal MS: Weakness, Swelling (3+ lower extremity edema bilateral, weakness generalized) MS Remarks Both legs elevated (Liudmila Mary) Integumentary Skin: Wounds Skin Remarks Scrotal wound and abscess, bloody serous discharge, moderate amount continues. I&D 2 (Liudmila Mary) Psychiatric Psychiatric: Normal Mood (Liudmila Mary) Vitals/Results Intake & Output 04/15/16 04/15/16 04/16/16 15:00 23:00 07:00 Intake Total 634 ml 240 ml 842 ml Output Total 475 ml 1100 ml 1600 ml Balance 159 ml -860 ml -758 ml Intake Oral 360 ml 240 ml 240 ml IV Total 274 ml 602 ml Output Urine Total 475 ml 1100 ml 1600 ml # Bowel Movements 0 0 Vital Signs Vital Signs Date Time Temp Pulse Resp B/P Pulse Ox O2 Delivery O2 Flow Rate FiO2 04/16/16 08:00 96.8 83 17 119/56 95 04/16/16 00:00 96.4 85 18 122/58 94 04/15/16 21:46 96 21 04/15/16 20:00 96.1 89 18 127/59 96 04/15/16 16:00 96.4 87 15 116/58 98 04/15/16 14:14 98 21 04/15/16 12:00 95.7 91 16 105/55 97 (Liudmila Mary) CBC/BMP: 04/15/16 0610 04/15/16 0610 Lab Results Laboratory Tests Test 04/14/16 04/15/16 04:20 06:10 White Blood Count 5.2 TH/MM3 6.1 TH/MM3 Red Blood Count 3.53 MIL/MM3 3.74 MIL/MM3 Hemoglobin 11.2 GM/DL 11.6 GM/DL Hematocrit 33.4 % 34.9 % Mean Corpuscular Volume 94.6 FL 93.4 FL Mean Corpuscular Hemoglobin 31.6 PG 31.0 PG Mean Corpuscular Hemoglobin 33.4 % 33.2 % Concent Red Cell Distribution Width 14.8 % 14.7 % Platelet Count 159 TH/MM3 154 TH/MM3 Mean Platelet Volume 7.3 FL 7.0 FL Sodium Level 140 MEQ/L 139 MEQ/L Potassium Level 3.4 MEQ/L 4.0 MEQ/L Chloride Level 103 MEQ/L 101 MEQ/L Carbon Dioxide Level 29.6 MEQ/L 31.5 MEQ/L Anion Gap 7 MEQ/L 7 MEQ/L Blood Urea Nitrogen 20 MG/DL 19 MG/DL Creatinine 1.06 MG/DL 1.03 MG/DL Estimat Glomerular Filtration 68 ML/MIN 70 ML/MIN Rate Random Glucose 121 MG/DL 110 MG/DL Calcium Level 7.7 MG/DL 7.8 MG/DL Neutrophils (%) (Auto) 77.3 % Lymphocytes (%) (Auto) 13.9 % Monocytes (%) (Auto) 7.6 % Eosinophils (%) (Auto) 0.5 % Basophils (%) (Auto) 0.7 % Neutrophils # (Auto) 4.7 TH/MM3 Lymphocytes # (Auto) 0.8 TH/MM3 Monocytes # (Auto) 0.5 TH/MM3 Eosinophils # (Auto) 0.0 TH/MM3 Basophils # (Auto) 0.0 TH/MM3 CBC Comment DIFF FINAL Differential Comment (Liudmila Mary) Physical Exam General General Appearance: Well Developed, Well Nourished, No Acute Distress, Comfortable, Sleeping (Liudmila Mary RECORDS MANAGEMENT ASSOCIATE) Eyes Eye Exam: Pupils Equal, Pupils Reactive, Extraocular Movement Intact (Liudmila MaryP) Ears & Nose Ears & Nose Exam: Nasal Mucosa [place] (Liudmila MaryP) Throat Throat Exam: Oral Mucosa [place] & Moist (Liudmila MaryP) Neck Neck Exam: Neck Supple, Trachea Midline (Liudmila MaryP) Pulmonary Resp Exam: Clear Bilaterally, Breath Sounds Equal, No Distress (Liudmila MaryP) Cardiology CV Exam: Regular (Liudmila MaryP) Gastrointestinal/Abdomen GI Exam: Soft, Non-Tender, Bowel Sounds Present, Non-Distended (Liudmila MaryP) Genitourinary Exam: Clear Urine Remarks Buck catheter, orange clear urine, catheter to be left in place per Dr. mar ( Liudmila MaryP) Musculoskeletal MS Exam: Joints Intact, Normal Tone (Liudmila MaryP) Integumentary Skin Exam: Clear, Warm, Normal Turgor Skin Remarks Scrotal wound with dressing, moderate amount of dark bloody drainage, with serous drainage. (Liudmila MaryP) Extremeties Extremities Exam: Pedal Pulses Palpable, Moderate Edema (2+ bilateral lower leg edema), Pitting Edema Extremeties Remarks Elevated on pillows bilateral lower leg (Liudmila MaryP) Neurologic Neuro Exam: Awake, Speech Clear, Moving All Extremities, No Focal Deficits ( Liudmila MaryP) Psychiatric Psych Exam: Appropriate Responses (Liudmila Mary) VTE Prophylaxis VTE Prophylaxis Device: TEDs VTE Prophylaxis Meds: Heparin (Liudmila Mary) Assessment/Plan Problem List: (1) Scrotal abscess (2) Lactic acidemia (3) ARF (acute renal failure) (4) Hypertension (5) BPH (benign prostatic hyperplasia) (6) Status post recent transurethral resection of prostate (7) Diabetes 1.5, managed as type 2 Assessment/Plan Scrotal abscess, wound care dressing changes. S/P debridement of scrotal skin 04/11 and 04-14. Plan for OR procedure Wednesday, 04-17 continue with suprapubic and buck catheter continue abx, as per ID ESBL + Escherichia coli Appreciate ID and urology input Vital signs are stable patient is afebrile, WBC count normal Continue with accuchecks AC/HS Diabetic pain, peripheral neuropathy, lower legs Pain management PRN Renal function better cautious hydration Pedal edema, chronic continue TEDS Lasix PO S/P fall 04/12, was assisting out of bed, didn't recall fall. C/O scalp pain CT head done 04/12- no acute findings reorient frequently, which seems to work. Morphine was discontinued yesterday due to mild altered mental status. Today patient is much more alert oriented and cooperative. Patient continues to be alert cooperative now bed alarm Heparin SQ for DVT prophylaxis. Pepcid for GI prophylaxis continue with PT Labs monitor, no acute issues noted DC planning possible Wednesday for further rehabilitation. depending on urology input. D/W RN D/W pt D/W Dr. Villatoro This pt was seen by myself and Dr. Villatoro, this note is written on his behalf ( Liudmila Mary) (Liudmila Mary) Assessment/Plan Patient seen and examined as above [id number] time spent with patient Meds reviewed Labs reviewed Discussed with RN Plan of care discussed with RECORDS MANAGEMENT ASSOCIATE Appreciate consultants input (Mauricio Villatoro MD) Problem Qualifiers (1) ARF (acute renal failure): Qualified Code: N17.9 - Acute renal failure, unspecified acute renal failure type (2) Hypertension: Qualified Code: I10 - Essential hypertension (3) BPH (benign prostatic hyperplasia): Qualified Code: N40.0 - Benign prostatic hyperplasia, presence of lower urinary tract symptoms unspecified, unspecified morphology Liudmila Mary Apr 16, 2016 10:14 Mauricio Villatoro MD Apr 16, 2016 13:22
[2016-04-16 11:33] VITALS: O2SAT 94
[2016-04-16 12:00] VITALS: BP 115/50; PULSE 94; RESP 17; TEMP 96.2; O2SAT 96
[2016-04-16] MEDS: MORPHINE SULFATE 4 MG/ML INJ IV PUSH PRN (13:07)
[2016-04-16] MEDS: ERTAPENEM INJ 1,000 MG in SODIUM CHLORIDE 0.9% INJ 100 ML IV SCH (15:24)
[2016-04-16 16:00] VITALS: BP 136/64; PULSE 91; RESP 17; TEMP 98.9; O2SAT 96
[2016-04-16 20:00] VITALS: BP 116/53; PULSE 96; RESP 18; TEMP 97.5; O2SAT 94
[2016-04-16] MEDS: TAMSULOSIN HCL 0.4 MG CAP PO SCH (21:52)
[2016-04-16] MEDS: ZOLPIDEM TARTRATE 5 MG TAB PO PRN (21:58)
[2016-04-17] VITALS: BP 122/56; PULSE 87; RESP 18; TEMP 97.1; O2SAT 94
[2016-04-17] MEDS: LACTATED RINGER'S 1000 ML IV SCH (02:15)
[2016-04-17] MEDS ORDERED: INSULIN HUMAN REGULAR 1,000 UNITS/10 ML VIAL SQ PRN (02:15)
[2016-04-17] MEDS ORDERED: SODIUM CHLORID 0.9% 500 ML IV SCH (02:15)
[2016-04-17] MEDS: INSULIN NovoLIN REGULAR SUPPLEMENTAL SCALE SQ SCH ×4 (05:58→21:00)
[2016-04-17] MEDS: ACETAMINOPHEN/HYDROcodone 325 MG/5 MG TAB PO PRN ×2 (07:49→14:37)
[2016-04-17] MEDS: FUROSEMIDE 40 MG TAB PO SCH (07:50)
[2016-04-17] MEDS: FAMOTIDINE 20 MG TAB PO SCH ×2 (07:50→21:34)
[2016-04-17 08:00] VITALS: BP 126/60; PULSE 95; RESP 17; TEMP 95.6; O2SAT 96
[2016-04-17] MEDS: glipiZIDE 5 MG TAB PO SCH (08:00)
[2016-04-17] MEDS: SODIUM CHLORIDE 0.9% FLUSH 5 ML FLUSH FLUSH SCH ×2 (09:00→21:35)
[2016-04-17] MEDS: HEPARIN SODIUM - SQ 10,000 UNITS/ML VIAL SQ SCH ×2 (09:00→21:35)
[2016-04-17 12:00] VITALS: BP 111/56; PULSE 83; RESP 17; TEMP 95.3; O2SAT 98
--- NOTE | 2016-04-17 13:22 | HHI.PR ---
Subjective Subjective Remarks going for debridement today NPO pleasant leg swelling better eating okay afebrile has been out of bed with PT family at [facility] (Miya Grullon) Review of Systems Constitutional Constitutional Remarks 12 point ROS completed, negative except as noted above-unreliable (Miya Grullon) Integumentary Skin: Wounds (Miya Grullon) Vitals/Results Intake & Output 04/16/16 04/16/16 04/17/16 15:00 23:00 07:00 Intake Total 498 ml 531 ml 546 ml Output Total 1300 ml 350 ml 300 ml Balance -802 ml 181 ml 246 ml Intake Oral 300 ml 240 ml 120 ml IV Total 198 ml 291 ml 426 ml Output Urine Total 1300 ml 350 ml 300 ml # Bowel Movements 0 1 0 Vital Signs Vital Signs Date Time Temp Pulse Resp B/P Pulse Ox O2 Delivery O2 Flow Rate FiO2 04/17/16 12:00 95.3 83 17 111/56 98 04/17/16 08:00 95.6 95 17 126/60 96 04/17/16 00:00 97.1 87 18 122/56 94 04/16/16 20:00 97.5 96 18 116/53 94 04/16/16 16:00 98.9 91 17 136/64 96 (Miya Grullon) CBC/BMP: 04/15/16 0610 04/15/16 0610 Physical Exam General General Appearance: Well Developed, Well Nourished, No Acute Distress, Comfortable (Miya Grullon) Eyes Eye Exam: Pupils Equal, Pupils Reactive, Extraocular Movement Intact (Miya Grullon) Ears & Nose Ears & Nose Exam: Nasal Mucosa [place] (Miya Grullon) Throat Throat Exam: Oral Mucosa [place] & Moist (Miya Grullon) Neck Neck Exam: Neck Supple, Trachea Midline (Miya Grullon) Pulmonary Resp Exam: Clear Bilaterally, Breath Sounds Equal, No Distress (Miya Grullon) Cardiology CV Exam: Regular (Miya Grullon) Gastrointestinal/Abdomen GI Exam: Soft, Non-Tender, Bowel Sounds Present, Non-Distended (Miya Grullon) Genitourinary Exam: Clear Urine Remarks BUCK -suprapubic and urethral (Miya Grullon) Musculoskeletal MS Exam: Joints Intact, Normal Tone (Miya Grullon) Integumentary Skin Exam: Clear, Warm, Normal Turgor (Miya Grullon) Extremeties Extremities Exam: Pedal Pulses Palpable, Moderate Edema (1+ bilateral lower leg edema), Pitting Edema (Miya Grullon) Neurologic Neuro Exam: Alert, Awake, Speech Clear, Moving All Extremities, No Focal Deficits (Miya Grullon) Psychiatric Psych Exam: Appropriate Responses (Miya Grullon) VTE Prophylaxis VTE Prophylaxis Device: TEDs VTE Prophylaxis Meds: Heparin (Miya Grullon) PUD Prophylasis PUD Remarks PEPCID (Miya Grullon) Assessment/Plan Problem List: (1) Scrotal abscess (2) Lactic acidemia (3) ARF (acute renal failure) (4) Hypertension (5) BPH (benign prostatic hyperplasia) (6) Status post recent transurethral resection of prostate (7) Diabetes 1.5, managed as type 2 Assessment/Plan Patient seen and examined as above [id number] time spent with patient Meds reviewed Labs reviewed Discussed with RN Plan of care discussed with SUPERVISOR ELECTRIC MOTOR TESTING Appreciate consultants input Scrotal abscess, wound care dressing changes. S/P debridement of scrotal skin 04/11 and 04/14. continue with suprapubic and buck catheter continue abx, as per ID ESBL + Escherichia coli Appreciate ID and urology input Going back to OR today for debridement NPO Continue with accuchecks AC/HS Diabetic pain, peripheral neuropathy, lower legs Pain management PRN Renal function better cautious hydration Pedal edema, chronic continue TEDS Lasix PO S/P fall 04/12, was assisting out of bed, didn't recall fall. C/O scalp pain CT head done 04/12- no acute findings limit narcotics stable Heparin SQ for DVT prophylaxis. Pepcid for GI prophylaxis continue with PT Discharge planning, poss. Wednesday Going to SNF D/W RN D/W pt/family D/W Dr. Villatoro This pt was seen by myself and Dr. Villatoro, this note is written on his behalf ( Miya Grullon) Assessment/Plan Patient seen and examined as above [id number] time spent with patient Meds reviewed Labs reviewed Plan of care discussed with SUPERVISOR ELECTRIC MOTOR TESTING Discussed with patient and at bedside (Mauricio Villatoro MD) Problem Qualifiers (1) ARF (acute renal failure): Qualified Code: N17.9 - Acute renal failure, unspecified acute renal failure type (2) Hypertension: Qualified Code: I10 - Essential hypertension (3) BPH (benign prostatic hyperplasia): Qualified Code: N40.0 - Benign prostatic hyperplasia, presence of lower urinary tract symptoms unspecified, unspecified morphology Miya Grullon Apr 17, 2016 13:22 Mauricio Villatoro MD Apr 17, 2016 16:52
[2016-04-17 16:00] VITALS: BP 110/55; PULSE 82; RESP 17; TEMP 96.6; O2SAT 96
[2016-04-17] MEDS: ERTAPENEM INJ 1,000 MG in SODIUM CHLORIDE 0.9% INJ 100 ML IV SCH (17:00)
[2016-04-17 20:00] VITALS: BP 106/54; PULSE 86; RESP 20; TEMP 98.4; O2SAT 97
[2016-04-17] MEDS: TAMSULOSIN HCL 0.4 MG CAP PO SCH (21:34)
[2016-04-17] MEDS: ZOLPIDEM TARTRATE 5 MG TAB PO PRN (21:34)
[2016-04-18] VITALS: BP 112/60; PULSE 88; RESP 20; TEMP 97.6; O2SAT 96
[2016-04-18] MEDS: LACTATED RINGER'S 1000 ML IV SCH (02:15)
[2016-04-18 05:14] LABS: INTERNATIONAL NORMALIZED RATIO 1.1 RATIO; PROTHROMBIN TIME - PATIENT 12.7 SEC (9.8-11.6)
[2016-04-18] MEDS: INSULIN NovoLIN REGULAR SUPPLEMENTAL SCALE SQ SCH ×4 (06:17→21:00)
[2016-04-18 08:00] VITALS: BP 119/58; PULSE 74; RESP 20; TEMP 97.4; O2SAT 95
[2016-04-18] MEDS: FUROSEMIDE 40 MG TAB PO SCH (08:06)
[2016-04-18] MEDS: glipiZIDE 5 MG TAB PO SCH (08:06)
[2016-04-18] MEDS: HEPARIN SODIUM - SQ 10,000 UNITS/ML VIAL SQ SCH ×2 (08:07→21:12)
[2016-04-18] MEDS: FAMOTIDINE 20 MG TAB PO SCH ×2 (08:07→21:12)
[2016-04-18] MEDS: SODIUM CHLORIDE 0.9% FLUSH 5 ML FLUSH FLUSH SCH ×2 (08:07→21:12)
[2016-04-18] MEDS: ACETAMINOPHEN/HYDROcodone 325 MG/5 MG TAB PO PRN ×2 (08:12→15:38)
[2016-04-18] MEDS: SODIUM CHLOR 0.9% 1000 ML INJ 1,000 ML IV SCH (10:21)
[2016-04-18 11:43] VITALS: BP 107/55; PULSE 84; RESP 17; TEMP 97.4; O2SAT 100
--- NOTE | 2016-04-18 13:35 | HHI.PR ---
Subjective Interval History Patient has no pain at present Feeling lot better Has confusion at nighttime sometimes No other complaint Eating good Did have a bowel movement today Review of system for 10 point system otherwise unremarkable Review of Systems Integumentary Skin: Wounds Vitals/Results Intake & Output 04/17/16 04/17/16 04/18/16 15:00 23:00 07:00 Intake Total 420 ml 360 ml 240 ml Output Total 1150 ml 500 ml Balance 420 ml -790 ml -260 ml Intake Oral 360 ml 240 ml IV Total 420 ml Output Urine Total 1150 ml 500 ml # Bowel Movements 1 Vital Signs Vital Signs Date Time Temp Pulse Resp B/P Pulse Ox O2 Delivery O2 Flow Rate FiO2 04/18/16 11:43 97.4 84 17 107/55 100 04/18/16 08:00 97.4 74 20 119/58 95 04/18/16 00:00 97.6 88 20 112/60 96 04/17/16 20:00 98.4 86 20 106/54 97 04/17/16 16:00 96.6 82 17 110/55 96 CBC/BMP: 04/15/16 0610 04/15/16 0610 Lab Results Laboratory Tests Test 04/18/16 04:06 Prothrombin Time 12.7 SEC Prothromb Time International 1.1 RATIO Ratio Physical Exam General General Appearance: Well Developed, Well Nourished, No Acute Distress, Comfortable Eyes Eye Exam: Pupils Equal, Pupils Reactive, Extraocular Movement Intact Ears & Nose Ears & Nose Exam: Nasal Mucosa [place] Throat Throat Exam: Oral Mucosa [place] & Moist Neck Neck Exam: Neck Supple, Trachea Midline Pulmonary Resp Exam: Clear Bilaterally, Breath Sounds Equal, No Distress Cardiology CV Exam: Regular CV Remarks S1 and S2 audible unable to hear any S3 gallop Gastrointestinal/Abdomen GI Exam: Soft, Non-Tender, Bowel Sounds Present, Non-Distended GI Remarks Suprapubic catheter Genitourinary Exam: Clear Urine Musculoskeletal MS Exam: Joints Intact, Normal Tone Integumentary Skin Exam: Clear, Warm, Normal Turgor Extremeties Extremities Exam: Pedal Pulses Palpable, Moderate Edema (1+ bilateral lower leg edema), Pitting Edema Neurologic Neuro Exam: Alert, Awake, Speech Clear, Moving All Extremities, No Focal Deficits Psychiatric Psych Exam: Appropriate Responses VTE Prophylaxis VTE Prophylaxis Device: TEDs VTE Prophylaxis Meds: Heparin Assessment/Plan Problem List: (1) Scrotal abscess (2) Lactic acidemia (3) ARF (acute renal failure) (4) Hypertension (5) BPH (benign prostatic hyperplasia) (6) Status post recent transurethral resection of prostate (7) Diabetes 1.5, managed as type 2 Assessment/Plan Scrotal abscess, wound care dressing changes. S/P debridement of scrotal skin 04/11 and 04/14. continue with suprapubic and buck catheter continue abx, as per ID ESBL + Escherichia coli Appreciate ID and urology input Continue with accuchecks AC/HS Diabetic pain, peripheral neuropathy, lower legs Pain management PRN Renal function better cautious hydration Pedal edema, chronic continue TEDS Lasix PO S/P fall 04/12, was assisting out of bed, didn't recall fall. C/O scalp pain CT head done 04/12- no acute findings limit narcotics stable Confusion likely from pain medication and being in hospital will monitor Heparin SQ for DVT prophylaxis. Pepcid for GI prophylaxis continue with PT Discharge planning, poss. Wednesday Going to SNF D/W RN D/W pt/family Problem Qualifiers (1) ARF (acute renal failure): Qualified Code: N17.9 - Acute renal failure, unspecified acute renal failure type (2) Hypertension: Qualified Code: I10 - Essential hypertension (3) BPH (benign prostatic hyperplasia): Qualified Code: N40.0 - Benign prostatic hyperplasia, presence of lower urinary tract symptoms unspecified, unspecified morphology Mauricio Villatoro MD Apr 18, 2016 13:35
[2016-04-18] MEDS: ERTAPENEM INJ 1,000 MG in SODIUM CHLORIDE 0.9% INJ 100 ML IV SCH (15:38)
[2016-04-18 16:00] VITALS: BP 122/58; PULSE 101; RESP 20; TEMP 98.7; O2SAT 97
[2016-04-18 20:21] VITALS: BP 123/58; PULSE 85; RESP 17; TEMP 96.3; O2SAT 97
[2016-04-18] MEDS: TAMSULOSIN HCL 0.4 MG CAP PO SCH (21:11)
[2016-04-18] MEDS: ZOLPIDEM TARTRATE 5 MG TAB PO PRN (21:12)
[2016-04-19 00:06] VITALS: BP 143/63; PULSE 84; RESP 17; TEMP 97.5; O2SAT 96
[2016-04-19] MEDS: LACTATED RINGER'S 1000 ML IV SCH (02:15)
[2016-04-19 05:50] LABS: HEMATOCRIT 29.9 % (39.0-51.0); MEAN CORPUSCULAR HEMOGLOBIN 31.4 PG (27.0-34.0); MEAN CORPUSCULAR HGB CONC 34.2 % (32.0-36.0); PLATELET COUNT 136 TH/MM3 (150-450); RED BLOOD COUNT 3.24 MIL/MM3 (4.50-5.90); RED CELL DISTRIBUTION WIDTH 14.9 % (11.6-17.2); REVIEW FLAG FINAL; WHITE BLOOD COUNT 3.7 TH/MM3 (4.0-11.0)
[2016-04-19 06:21] LABS: POTASSIUM 3.1 MEQ/L (3.5-5.1)
[2016-04-19] MEDS: INSULIN NovoLIN REGULAR SUPPLEMENTAL SCALE SQ SCH ×4 (07:00→20:28)
[2016-04-19 08:00] VITALS: BP 106/57; PULSE 84; RESP 19; TEMP 95.7; O2SAT 97
[2016-04-19] MEDS: FUROSEMIDE 40 MG TAB PO SCH (08:53)
[2016-04-19] MEDS: FAMOTIDINE 20 MG TAB PO SCH ×2 (08:53→20:21)
[2016-04-19] MEDS: SODIUM CHLORIDE 0.9% FLUSH 5 ML FLUSH FLUSH SCH ×2 (08:53→20:23)
[2016-04-19] MEDS: SODIUM CHLOR 0.9% 1000 ML INJ 1,000 ML IV SCH (08:53)
[2016-04-19] MEDS: glipiZIDE 5 MG TAB PO SCH (08:53)
[2016-04-19] MEDS: HEPARIN SODIUM - SQ 10,000 UNITS/ML VIAL SQ SCH ×2 (08:53→20:21)
--- NOTE | 2016-04-19 10:16 | HHI.PR ---
Subjective Interval History Patient is feeling better No pain No nausea vomiting Walking Review of system for 10 point system otherwise unremarkable Review of Systems Integumentary Skin: Wounds Vitals/Results Intake & Output 04/18/16 04/18/16 04/19/16 15:00 23:00 07:00 Intake Total 880 ml 280 ml 240 ml Output Total 800 ml 1000 ml 400 ml Balance 80 ml -720 ml -160 ml Intake Oral 880 ml 280 ml 240 ml Output Urine Total 800 ml 1000 ml 400 ml # Bowel Movements 0 1 Vital Signs Vital Signs Date Time Temp Pulse Resp B/P Pulse Ox O2 Delivery O2 Flow Rate FiO2 04/19/16 08:00 95.7 84 19 106/57 97 04/19/16 00:06 97.5 84 17 143/63 96 04/18/16 20:21 96.3 85 17 123/58 97 04/18/16 16:00 98.7 101 20 122/58 97 04/18/16 11:43 97.4 84 17 107/55 100 CBC/BMP: 04/19/16 0444 04/19/16 0444 Lab Results Laboratory Tests Test 04/19/16 04:44 White Blood Count 3.7 TH/MM3 Red Blood Count 3.24 MIL/MM3 Hemoglobin 10.2 GM/DL Hematocrit 29.9 % Mean Corpuscular Volume 92.0 FL Mean Corpuscular Hemoglobin 31.4 PG Mean Corpuscular Hemoglobin 34.2 % Concent Red Cell Distribution Width 14.9 % Platelet Count 136 TH/MM3 Mean Platelet Volume 8.1 FL Sodium Level 142 MEQ/L Potassium Level 3.1 MEQ/L Chloride Level 103 MEQ/L Carbon Dioxide Level 32.0 MEQ/L Anion Gap 7 MEQ/L Blood Urea Nitrogen 16 MG/DL Creatinine 1.00 MG/DL Estimat Glomerular Filtration 73 ML/MIN Rate Random Glucose 102 MG/DL Calcium Level 7.5 MG/DL Physical Exam General General Appearance: Well Developed, Well Nourished, No Acute Distress, Comfortable Eyes Eye Exam: Pupils Equal, Pupils Reactive, Extraocular Movement Intact Ears & Nose Ears & Nose Exam: Nasal Mucosa [place] Throat Throat Exam: Oral Mucosa [place] & Moist Neck Neck Exam: Neck Supple, Trachea Midline Pulmonary Resp Exam: Clear Bilaterally, Breath Sounds Equal, No Distress Cardiology CV Exam: Regular CV Remarks S1 and S2 audible unable to hear any S3 gallop Gastrointestinal/Abdomen GI Exam: Soft, Non-Tender, Bowel Sounds Present, Non-Distended GI Remarks Suprapubic catheter Genitourinary Exam: Clear Urine Musculoskeletal MS Exam: Joints Intact, Normal Tone Integumentary Skin Exam: Clear, Warm, Normal Turgor Extremeties Extremities Exam: Pedal Pulses Palpable, Moderate Edema (1+ bilateral lower leg edema), Pitting Edema Neurologic Neuro Exam: Alert, Awake, Speech Clear, Moving All Extremities, No Focal Deficits Psychiatric Psych Exam: Appropriate Responses VTE Prophylaxis VTE Prophylaxis Device: TEDs VTE Prophylaxis Meds: Heparin Assessment/Plan Problem List: (1) Scrotal abscess (2) Lactic acidemia (3) ARF (acute renal failure) (4) Hypertension (5) BPH (benign prostatic hyperplasia) (6) Status post recent transurethral resection of prostate (7) Diabetes 1.5, managed as type 2 Assessment/Plan Scrotal abscess, wound care dressing changes. S/P debridement of scrotal skin 04/11 and 04/14. continue with suprapubic and buck catheter continue abx, as per ID ESBL + Escherichia coli Positive Sophie On aztreonam. Diflucan. Cancers to by mouth Levaquin on discharge for Escherichia coli as per ID Appreciate ID and urology input Continue with accuchecks AC/HS Diabetic pain, peripheral neuropathy, lower legs Pain management PRN Renal function better cautious hydration Pedal edema, chronic continue TEDS Lasix PO S/P fall 04/12, was assisting out of bed, didn't recall fall. C/O scalp pain CT head done 04/12- no acute findings limit narcotics stable Low potassium will replace DC IV fluid today Confusion likely from pain medication and being in hospital will monitor. Better Heparin SQ for DVT prophylaxis. Pepcid for GI prophylaxis continue with PT Discharge planning, poss. Wednesday Going to SNF/home with home health care D/W RN D/W pt Problem Qualifiers (1) ARF (acute renal failure): Qualified Code: N17.9 - Acute renal failure, unspecified acute renal failure type (2) Hypertension: Qualified Code: I10 - Essential hypertension (3) BPH (benign prostatic hyperplasia): Qualified Code: N40.0 - Benign prostatic hyperplasia, presence of lower urinary tract symptoms unspecified, unspecified morphology Mauricio Villatoro MD Apr 19, 2016 10:16
[2016-04-19] MEDS ORDERED: POTASSIUM CHLORIDE 20 MEQ CONTROLLED RELEASE TAB PO ONE (11:00)
[2016-04-19] MEDS: FLUCONAZOLE 200 MG TAB PO SCH (11:45)
[2016-04-19 12:00] VITALS: BP 119/58; PULSE 86; RESP 18; TEMP 96; O2SAT 99
[2016-04-19 16:00] VITALS: BP 125/60; PULSE 89; RESP 17; TEMP 97.7; O2SAT 100
[2016-04-19] MEDS: ERTAPENEM INJ 1,000 MG in SODIUM CHLORIDE 0.9% INJ 100 ML IV SCH (18:35)
[2016-04-19] MEDS: ACETAMINOPHEN/HYDROcodone 325 MG/5 MG TAB PO PRN (19:15)
--- NOTE | 2016-04-19 20:09 | HHI.PR ---
Subjective Remarks Scrotal abscess s/p I&D with multiple wound debridements Doing well, no issues overnight. Interview with patient while proceeding to bathroom. Pain well controlled. Objective Vital Signs Vital Signs Date Time Temp Pulse Resp B/P Pulse Ox O2 Delivery O2 Flow Rate FiO2 04/19/16 16:00 97.7 89 17 125/60 100 04/19/16 12:00 96.0 86 18 119/58 99 04/19/16 08:00 95.7 84 19 106/57 97 04/19/16 00:06 97.5 84 17 143/63 96 04/18/16 20:21 96.3 85 17 123/58 97 I/O 04/18/16 04/18/16 04/18/16 04/19/16 04/19/16 04/19/16 07:00 15:00 23:00 07:00 15:00 23:00 Intake Total 240 ml 880 ml 280 ml 240 ml 1376 ml Output Total 500 ml 800 ml 1000 ml 400 ml 625 ml Balance -260 ml 80 ml -720 ml -160 ml 751 ml Intake Oral 240 ml 880 ml 280 ml 240 ml 480 ml IV Total 896 ml Output Urine Total 500 ml 800 ml 1000 ml 400 ml 625 ml # Bowel Movements 0 1 0 Result Diagram: 04/19/16 0444 04/19/16 1516 Objective Remarks NAD AAOx3 [place] catheter in place, clear yellow urine No edema Procedures scrotal debridement 04/11 Assessment and Plan Problem List: (1) Scrotal abscess ICD Code: N49.2 Status: Acute Assessment and Plan -Doing well, minimal to no pain -Potential discharge home soon -No further debridement planned at this time Adrian Crabtree MD Apr 19, 2016 20:09
[2016-04-19] MEDS: ZOLPIDEM TARTRATE 5 MG TAB PO PRN (20:21)
[2016-04-19] MEDS: TAMSULOSIN HCL 0.4 MG CAP PO SCH (20:21)
[2016-04-19 20:26] VITALS: BP 118/56; PULSE 92; RESP 16; TEMP 96.9; O2SAT 93
[2016-04-20 00:31] VITALS: BP 108/57; PULSE 90; RESP 17; TEMP 98.5; O2SAT 94
[2016-04-20] MEDS: LACTATED RINGER'S 1000 ML IV SCH (01:03)
[2016-04-20] MEDS: ACETAMINOPHEN/HYDROcodone 325 MG/5 MG TAB PO PRN ×3 (01:03→17:14)
[2016-04-20] MEDS: INSULIN NovoLIN REGULAR SUPPLEMENTAL SCALE SQ SCH ×3 (07:00→16:00)
[2016-04-20 08:00] VITALS: BP 129/60; PULSE 85; RESP 17; TEMP 97.5; O2SAT 96
[2016-04-20] MEDS: SODIUM CHLORIDE 0.9% FLUSH 5 ML FLUSH FLUSH SCH (09:00)
[2016-04-20] MEDS: glipiZIDE 5 MG TAB PO SCH (09:26)
[2016-04-20] MEDS: FAMOTIDINE 20 MG TAB PO SCH (09:26)
[2016-04-20] MEDS: FLUCONAZOLE 200 MG TAB PO SCH (09:26)
[2016-04-20] MEDS: FUROSEMIDE 40 MG TAB PO SCH (09:26)
[2016-04-20] MEDS: HEPARIN SODIUM - SQ 10,000 UNITS/ML VIAL SQ SCH (09:27)
[2016-04-20] MEDS: SODIUM CHLOR 0.9% 1000 ML INJ 1,000 ML IV SCH (09:29)
--- NOTE | 2016-04-20 10:06 | HHI.PR ---
Subjective Interval History Patient is feeling better pain is lot better Offering no other complaint And walk yesterday Eating okay No confusion Review of system for 10 point system otherwise unremarkable Review of Systems Integumentary Skin: Wounds Vitals/Results Intake & Output 04/19/16 04/19/16 04/20/16 15:00 23:00 07:00 Intake Total 1376 ml 380 ml 280 ml Output Total 625 ml 450 ml 380 ml Balance 751 ml -70 ml -100 ml Intake Oral 480 ml 380 ml 280 ml IV Total 896 ml Output Urine Total 625 ml 450 ml 380 ml # Bowel Movements 0 1 1 Vital Signs Vital Signs Date Time Temp Pulse Resp B/P Pulse Ox O2 Delivery O2 Flow Rate FiO2 04/20/16 08:00 97.5 85 17 129/60 96 04/20/16 00:31 98.5 90 17 108/57 94 04/19/16 20:26 96.9 92 16 118/56 93 04/19/16 16:00 97.7 89 17 125/60 100 04/19/16 12:00 96.0 86 18 119/58 99 CBC/BMP: 04/19/16 0444 04/19/16 1516 Lab Results Laboratory Tests Test 04/19/16 15:16 Potassium Level 3.6 MEQ/L Physical Exam General General Appearance: Well Developed, Well Nourished, No Acute Distress, Comfortable Eyes Eye Exam: Pupils Equal, Pupils Reactive, Extraocular Movement Intact Ears & Nose Ears & Nose Exam: Nasal Mucosa [place] Throat Throat Exam: Oral Mucosa [place] & Moist Neck Neck Exam: Neck Supple, Trachea Midline Pulmonary Resp Exam: Clear Bilaterally, Breath Sounds Equal, No Distress Cardiology CV Exam: Regular CV Remarks S1 and S2 audible unable to hear any S3 gallop Gastrointestinal/Abdomen GI Exam: Soft, Non-Tender, Bowel Sounds Present, Non-Distended GI Remarks Suprapubic catheter Genitourinary Exam: Clear Urine Musculoskeletal MS Exam: Joints Intact, Normal Tone Integumentary Skin Exam: Clear, Warm, Normal Turgor Extremeties Extremities Exam: Pedal Pulses Palpable, Moderate Edema (1+ bilateral lower leg edema), Pitting Edema Neurologic Neuro Exam: Alert, Awake, Oriented, Speech Clear, Moving All Extremities, No Focal Deficits Psychiatric Psych Exam: Appropriate Responses VTE Prophylaxis VTE Prophylaxis Device: TEDs VTE Prophylaxis Meds: Heparin Assessment/Plan Problem List: (1) Scrotal abscess (2) Lactic acidemia (3) ARF (acute renal failure) (4) Hypertension (5) BPH (benign prostatic hyperplasia) (6) Status post recent transurethral resection of prostate (7) Diabetes 1.5, managed as type 2 Assessment/Plan Scrotal abscess, wound care dressing changes. S/P debridement of scrotal skin 04/11 and 04/14. As per urology no more debridement needed continue with suprapubic and buck catheter continue abx, as per ID ESBL + Escherichia coli Positive Sophie On aztreonam. Diflucan. by mouth Levaquin on discharge for Escherichia coli as per ID Appreciate ID and urology input Continue with accuchecks AC/HS Diabetic pain, peripheral neuropathy, lower legs Pain management PRN Renal function better Pedal edema, chronic continue TEDS Lasix PO S/P fall 04/12, was assisting out of bed, didn't recall fall. C/O scalp pain CT head done 04/12- no acute findings limit narcotics stable Low potassium improved Confusion likely from pain medication and being in hospital will monitor. Improved Heparin SQ for DVT prophylaxis. Pepcid for GI prophylaxis continue with PT Discharge planning, to SNF today Going to SNF as discussed with patient D/W RN D/W pt Discussed with disability case manager Total time spent and DC planning of this this patient is more than 45 minutes Problem Qualifiers (1) ARF (acute renal failure): Qualified Code: N17.9 - Acute renal failure, unspecified acute renal failure type (2) Hypertension: Qualified Code: I10 - Essential hypertension (3) BPH (benign prostatic hyperplasia): Qualified Code: N40.0 - Benign prostatic hyperplasia, presence of lower urinary tract symptoms unspecified, unspecified morphology Mauricio Villatoro MD Apr 20, 2016 10:06
[2016-04-20] MEDS ORDERED: ACET325T PO (10:09)
[2016-04-20] MEDS ORDERED: HYDR-3516 PO (10:09)
[2016-04-20] MEDS ORDERED: AMBI5TAB PO (10:09)
--- NOTE | 2016-04-20 10:17 | HHI.DS ---
Discharge Summary Admission Date Apr 10, 2016 at 16:59 Admitting Diagnosis Scrotal abscess (1) Dehydration Diagnosis: Principal (2) Hematuria Diagnosis: Principal (3) Sepsis Diagnosis: Principal (4) Scrotal abscess Diagnosis: Principal (5) ARF (acute renal failure) Diagnosis: Principal (6) Hypertension Diagnosis: Principal (7) BPH (benign prostatic hyperplasia) Diagnosis: Principal (8) Diabetes 1.5, managed as type 2 Diagnosis: Principal (9) UTI (urinary tract infection) Brief History Patient was admitted because of the pain with scrotal swelling and redness. Patient was seen and followed by urologist. Patient had a debridement done twice. In the meantime cultures were done. She was seen and followed by infectious disease doctor. Patient was kept on appropriate antibiotics. Culture were followed. Now as per urology can be discharged. As patient is overall a stable and good condition plan to discharge him to SNF. Final antibiotic recommendation per ID. In the meantime patient's diabetes was managed. Patient had sepsis on admission. It was taking care appropriately. Initially he had a acute kidney injury with resolved after appropriate hydration. During his stay he has abnormal electrolytes which were taking care appropriately. No patient is overall stable and good condition guarded discharge to SNF. See chart for further detail. CBC/BMP: 04/19/16 0444 04/19/16 1516 Significant Findings Laboratory Tests Test 04/18/16 04/19/16 04:06 04:44 Prothrombin Time 12.7 SEC (9.8-11.6) White Blood Count 3.7 TH/MM3 (4.0-11.0) Red Blood Count 3.24 MIL/MM3 (4.50-5.90) Hemoglobin 10.2 GM/DL (13.0-17.0) Hematocrit 29.9 % (39.0-51.0) Platelet Count 136 TH/MM3 (150-450) Potassium Level 3.1 MEQ/L (3.5-5.1) Estimat Glomerular Filtration 73 ML/MIN (>89) Rate Calcium Level 7.5 MG/DL (8.5-10.1) Pt Condition on Discharge: Good Discharge Instructions DIET: Follow Instructions for: Diabetic Diet Activities you can perform: Weight Bearing as Vania Follow up Referrals: PCP Follow-up - 1 Week Urology - 1 Week New Medications: Acetaminophen (Acetaminophen) 325 Mg Tab 650 MG PO Q4H PRN TEMP > 100.4 #30 TAB Hydrocodone-Acetaminophen (Hydrocodone-Acetaminophen) 5-325 mg Tab 1 TAB PO Q4H PRN PAIN SCALE 6 TO 10 #30 TAB Zolpidem (Ambien) 5 Mg Tab 5 MG PO HS PRN INSOMNIA #10 TAB Continued Medications: Furosemide (Lasix) 40 Mg Tab 40 MG PO DAILY #30 Ref 0 TAB Glipizide (Glipizide) 5 Mg Tab 5 MG PO DAILY Take 30 minutes before a meal Blood Sugar Management #30 Ref 0 TAB Pantoprazole (Protonix) 40 Mg Tab 40 MG PO DAILY Reflux #30 Ref 0 TAB Ranitidine (Zantac) 300 Mg Tab 300 MG PO DAILY Ref 0 TAB Tamsulosin (Flomax) 0.4 Mg Cap 0.4 MG PO HS Manage Prostate Problems #30 Ref 0 CAP Mauricio Villatoro MD Apr 20, 2016 10:17
[2016-04-20 12:00] VITALS: BP 115/61; PULSE 92; RESP 17; TEMP 97; O2SAT 98
--- NOTE | 2016-04-20 12:55 | HHI.IDPN ---
Subjective Subjective Remarks doing well improving afebrile Antibiotics ertapenem Allergies: Coded Allergies: *MDRO Multi-Drug Resistant Organism (Verified Adverse Reaction, Unknown, ) ESBL E. coli (scrotum) - 04/09/16 Objective . Vital Signs Date Time Temp Pulse Resp B/P Pulse Ox O2 Delivery O2 Flow Rate FiO2 04/20/16 12:00 97.0 92 17 115/61 98 04/20/16 08:00 97.5 85 17 129/60 96 04/20/16 00:31 98.5 90 17 108/57 94 04/19/16 20:26 96.9 92 16 118/56 93 04/19/16 16:00 97.7 89 17 125/60 100 04/19/16 04/19/16 04/20/16 15:00 23:00 07:00 Intake Total 1376 ml 380 ml 280 ml Output Total 625 ml 450 ml 380 ml Balance 751 ml -70 ml -100 ml Intake Oral 480 ml 380 ml 280 ml IV Total 896 ml Output Urine Total 625 ml 450 ml 380 ml # Bowel Movements 0 1 1 . Laboratory Tests Test 04/19/16 04:44 White Blood Count 3.7 TH/MM3 Red Blood Count 3.24 MIL/MM3 Hemoglobin 10.2 GM/DL Hematocrit 29.9 % Mean Corpuscular Volume 92.0 FL Mean Corpuscular Hemoglobin 31.4 PG Mean Corpuscular Hemoglobin 34.2 % Concent Red Cell Distribution Width 14.9 % Platelet Count 136 TH/MM3 Mean Platelet Volume 8.1 FL Laboratory Tests Test 04/19/16 04/19/16 04:44 15:16 Sodium Level 142 MEQ/L Potassium Level 3.1 MEQ/L 3.6 MEQ/L Chloride Level 103 MEQ/L Carbon Dioxide Level 32.0 MEQ/L Anion Gap 7 MEQ/L Blood Urea Nitrogen 16 MG/DL Creatinine 1.00 MG/DL Estimat Glomerular Filtration 73 ML/MIN Rate Random Glucose 102 MG/DL Calcium Level 7.5 MG/DL Imaging Last Impressions Lower Extremity Ultrasound 04/14/16 0000 Signed Impressions: Service Date/Time: Thursday, April 14, 2016 14:13 - CONCLUSION: Normal examination. Ezequiel Pinon MD Head CT 04/12/16 0000 Signed Impressions: Service Date/Time: Tuesday, April 12, 2016 14:42 - CONCLUSION: Normal examination for a patient of this age. Enmanuel Morales MD Chest X-Ray 04/12/16 0000 Signed Impressions: Service Date/Time: Tuesday, April 12, 2016 14:19 - CONCLUSION: No acute disease. No significant change has occurred. Bishnu Malhotra MD Physical Exam CONSTITUTIONAL/GENERAL: This is an adequately nourished patient, in no apparent distress. TUBES/LINES/DRAINS: SKIN: No jaundice, rashes, or lesions. EYES: No scleral icterus. RESPIRATORY/CHEST: Symmetric, unlabored respirations. GASTROINTESTINAL: Abdomen soft, non-tender, nondistended. GENITOURINARY: Aponte in place with clear urine Scrotum is not erythematous or edematous, mildly tender to palpation open scrotum wound with [place] drain small amount of seros odorless dc stitches in place NEUROLOGICAL: Awake and alert. NOn focal Assessment & Plan Remarks Scrotal gangrene sp debridement, ESBL sp TURP - marked clinical improvement with multiple debridements and abx Growing yeast in 1/2 clx - cw collonisation] - doubt clin significance ARF, resolved OK to dc pt with few days on po levaquine 500 daily thru 04/25 no idications for antifungal dw Serene Villatoro and Sulma Kaur MD Apr 20, 2016 12:55
[2016-04-20] MEDS ORDERED: LEVA500T PO (13:33)
[2016-04-20 16:00] VITALS: BP 114/59; PULSE 85; RESP 17; TEMP 96.9; O2SAT 99
[2016-04-20] MEDS: ERTAPENEM INJ 1,000 MG in SODIUM CHLORIDE 0.9% INJ 100 ML IV SCH (17:13)
== END 2016-04-20 18:16 | DRG 854 ==
LOC: NEPB 19:03 → NEDA 22:29 → NEDH 04-09 02:29 → NEPHCDU 04-09 13:46 → OBSVTOIN 04-10 16:59 → N07B 04-11 08:05 → N07A 04-11 12:43
PROVIDERS: ADMIT Specialist; ATTEND Specialist
PROC: 0HDAXZZ Extraction of Inguinal Skin, External Approach (ICD-10-PCS; 2016-04-11)
PROC: 0HDAXZZ Extraction of Inguinal Skin, External Approach (ICD-10-PCS; 2016-04-14)
PROC: 0TQD0ZZ Repair Urethra, Open Approach (ICD-10-PCS; principal; 2016-04-14 19:10)
DX: A41.51 Sepsis due to Escherichia coli [E. coli] (principal); N17.9 Acute kidney failure, unspecified; E87.2 Acidosis; E11.42 Type 2 diabetes mellitus with diabetic polyneuropathy; E87.1 Hypo-osmolality and hyponatremia; N39.0 Urinary tract infection, site not specified; N49.3 Fournier gangrene; E11.65 Type 2 diabetes mellitus with hyperglycemia; E86.0 Dehydration; N36.8 Other specified disorders of urethra; D64.9 Anemia, unspecified; N40.0 Benign prostatic hyperplasia without lower urinary tract symptoms; M19.90 Unspecified osteoarthritis, unspecified site; K21.9 Gastro-esophageal reflux disease without esophagitis; E78.5 Hyperlipidemia, unspecified; I10 Essential (primary) hypertension; B96.29 Other Escherichia coli [E. coli] as the cause of diseases classified elsewhere; R51 Headache; R41.0 Disorientation, unspecified; T40.605A Adverse effect of unspecified narcotics, initial encounter; W19.XXXA Unspecified fall, initial encounter; Y92.239 Unspecified place in hospital as the place of occurrence of the external cause; Z16.12 Extended spectrum beta lactamase (ESBL) resistance; Z91.19 Patient's noncompliance with other medical treatment and regimen
CPT/HCPCS: 70450; 71020; 80048; 80170; 82948; 84132; 85007; 85025; 85027; 85610; 86403; 87015; 87040; 87070; 87077; 87102; 87106; 87116; 87176; 87186; 87205; 87206; 93005; 93970; 96361; 96374; G0378; J0131; J0690; J1200; J1335; J1580; J1644; J2250; J2270; J2370; J2405; J2543; J3010; J3370; J7030; J7040; J7120

== ENCOUNTER → 2016-05-22 | Outpatient (CLI) | payer MEDICARE ==
[~2016-05-22] MED LIST changes: +ACET325T PO; -ALOG12.52 PO; +AMBI5TAB PO; -CEFU1TAB42 PO; +FURO1TAB60 PO; -GLIP5 PO; +GLIP5TAB8 PO; +HYDR-3516 PO; +LEVA500T PO; +PROT40TA PO; +TAMS5CAP PO
[2016-05-22 14:46] LABS: BICARBONATE 29.5 MEQ/L (21.0-32.0)
== END ==
LOC: ELAB 11:14
PROVIDERS: ATTEND Internal Medicine
DX: R53.83 Other fatigue (principal); E11.65 Type 2 diabetes mellitus with hyperglycemia; Z79.899 Other long term (current) drug therapy
CPT/HCPCS: 36415; 80048; 82040

== ENCOUNTER → 2016-06-03 | Outpatient (CLI) | payer MEDICARE ==
[2016-06-03 12:13] LABS: AUTOMATED NEUTROPHIL # 3.9 TH/MM3 (1.8-7.7); BASOPHIL % 0.7 % (0.0-2.0); EOSINOPHIL # 0.1 TH/MM3 (0-0.4); EOSINOPHIL % 1.3 % (0.0-4.0); HEMATOCRIT 34.8 % (39.0-51.0); HEMO FLAGS DIFF FINAL; LYMPH % 18.2 % (9.0-44.0); MEAN CELL VOLUME 93.3 FL (80.0-100.0); MEAN CORPUSCULAR HGB CONC 33.2 % (32.0-36.0); MONO % 6.7 % (0.0-8.0); NEUT % 73.1 % (16.0-70.0); PLATELET COUNT 155 TH/MM3 (150-450); RED BLOOD COUNT 3.73 MIL/MM3 (4.50-5.90); RED CELL DISTRIBUTION WIDTH 16.1 % (11.6-17.2); WHITE BLOOD COUNT 5.4 TH/MM3 (4.0-11.0)
[2016-06-03 12:35] LABS: BICARBONATE 35.2 MEQ/L (21.0-32.0); POTASSIUM 3.3 MEQ/L (3.5-5.1)
== END ==
LOC: ELAB 09:14
DX: N35.9 Urethral stricture, unspecified (principal); Z12.82 Encounter for screening for malignant neoplasm of nervous system
CPT/HCPCS: 36415; 80048; 85025

== ENCOUNTER → 2016-06-29 | Outpatient (CLI) | payer MEDICARE ==
[2016-06-29 12:31] LABS: ALKALINE PHOSPHATASE 241 U/L (45-117); ALT (GPT) 18 U/L (12-78); ANION GAP 6 MEQ/L (5-15); AST (GOT) 41 U/L (15-37); BICARBONATE 36.7 MEQ/L (21.0-32.0); BLOOD UREA NITROGEN 22 MG/DL (7-18); CHLORIDE 94 MEQ/L (98-107); GLOMERULAR FILTRATION RATE 45 ML/MIN (>89); GLUCOSE,FASTING 142 MG/DL (74-99); HDL CHOLESTEROL 34.8 MG/DL (40.0-60.0); LDL CHOLESTEROL 184 MG/DL (0-99); SODIUM (NA) 137 MEQ/L (136-145); TOTAL BILIRUBIN ADULT 1.2 MG/DL (0.2-1.0)
[2016-06-29 12:45] LABS: POTASSIUM 2.8 MEQ/L (3.5-5.1)
[2016-06-29 14:03] LABS: HEMOGLOBIN A1b 1.1 %; HEMOGLOBIN Ao 83.9 %; HEMOGLOBIN F 0.9 %; HEMOGLOBIN LA1C 2.2 %; HEMOGLOBIN P3 5.7 %
== END ==
LOC: ELAB 10:47
PROVIDERS: ATTEND Internal Medicine
DX: E11.65 Type 2 diabetes mellitus with hyperglycemia (principal); E87.6 Hypokalemia; Z79.899 Other long term (current) drug therapy
CPT/HCPCS: 36415; 80053; 80061; 82248; 83036

== ENCOUNTER → 2016-07-06 | Outpatient (CLI) | payer MEDICARE ==
[2016-07-06 12:22] LABS: BICARBONATE 33.7 MEQ/L (21.0-32.0); POTASSIUM 3.3 MEQ/L (3.5-5.1)
== END ==
LOC: ELAB 10:31
PROVIDERS: ATTEND Internal Medicine
DX: R60.9 Edema, unspecified (principal); R53.83 Other fatigue; E11.65 Type 2 diabetes mellitus with hyperglycemia; Z79.899 Other long term (current) drug therapy
CPT/HCPCS: 36415; 80048; 82040; 84155

== ENCOUNTER → 2016-07-21 | Outpatient (CLI) | payer MEDICARE ==
[2016-07-21 12:06] LABS: AUTOMATED NEUTROPHIL # 2.5 TH/MM3 (1.8-7.7); BASOPHIL # 0.1 TH/MM3 (0-0.2); BASOPHIL % 2.1 % (0.0-2.0); EOSINOPHIL # 0.1 TH/MM3 (0-0.4); HEMATOCRIT 35.9 % (39.0-51.0); HEMO FLAGS DIFF FINAL; LYMPH % 23.8 % (9.0-44.0); LYMPHOCYTE # 0.9 TH/MM3 (1.0-4.8); MEAN CELL VOLUME 95.1 FL (80.0-100.0); MEAN CORPUSCULAR HEMOGLOBIN 31.5 PG (27.0-34.0); MEAN CORPUSCULAR HGB CONC 33.2 % (32.0-36.0); MONO % 6.7 % (0.0-8.0); NEUT % 65.4 % (16.0-70.0); PLATELET COUNT 140 TH/MM3 (150-450); RED BLOOD COUNT 3.77 MIL/MM3 (4.50-5.90); RED CELL DISTRIBUTION WIDTH 14.9 % (11.6-17.2); WHITE BLOOD COUNT 3.8 TH/MM3 (4.0-11.0)
[2016-07-21 12:10] LABS: BICARBONATE 31.2 MEQ/L (21.0-32.0); POTASSIUM 3.6 MEQ/L (3.5-5.1)
== END ==
LOC: ELAB 10:07
PROVIDERS: ATTEND Internal Medicine
DX: E78.5 Hyperlipidemia, unspecified (principal); E11.65 Type 2 diabetes mellitus with hyperglycemia; Z79.899 Other long term (current) drug therapy
CPT/HCPCS: 36415; 80048; 82040; 84155; 85025

== ENCOUNTER → 2016-07-24 | Outpatient (CLI) | payer MEDICARE ==
[2016-07-24 12:02] LABS: MEAN CELL VOLUME 97.1 FL (80.0-100.0); MEAN CORPUSCULAR HEMOGLOBIN 32.3 PG (27.0-34.0); MEAN CORPUSCULAR HGB CONC 33.3 % (32.0-36.0); PLATELET COUNT 145 TH/MM3 (150-450); REVIEW FLAG FINAL; WHITE BLOOD COUNT 4.1 TH/MM3 (4.0-11.0)
[2016-07-24 12:42] LABS: ALKALINE PHOSPHATASE 247 U/L (45-117); ALT (GPT) 20 U/L (12-78); ANION GAP 7 MEQ/L (5-15); AST (GOT) 36 U/L (15-37); BICARBONATE 28.4 MEQ/L (21.0-32.0); BLOOD UREA NITROGEN 21 MG/DL (7-18); CHLORIDE 104 MEQ/L (98-107); GLOMERULAR FILTRATION RATE 44 ML/MIN (>89); POTASSIUM 4.6 MEQ/L (3.5-5.1); SODIUM (NA) 139 MEQ/L (136-145); TOTAL BILIRUBIN ADULT 0.9 MG/DL (0.2-1.0)
== END ==
LOC: ELAB 10:41
DX: N39.0 Urinary tract infection, site not specified (principal)
CPT/HCPCS: 36415; 80053; 85027